=== PATIENT | male | born 1935 | race Caucasian/White ===

== ENCOUNTER 2016-12-03 17:12 | Inpatient (IN) | payer MEDICARE ==
[2016-12-03] MEDS ORDERED: IPRATROPIUM-ALBUTEROL 3 ML NEB INHALATION STA (17:47)
[2016-12-03] MEDS ORDERED: SODIUM CHLORIDE 0.9% 1,000 ML IV STA (17:47)
[2016-12-03] MEDS ORDERED: LEVOFLOXACIN 750MG-D5W PMX 750 MG in DEXTROSE/WATER 1 150ML.BAG IVPB STA (17:47)
[2016-12-03] MEDS ORDERED: SODIUM CHLORIDE 0.9% 500 ML IV STA (17:47)
[2016-12-03] MEDS ORDERED: HYDROmorphone 1 MG/ML 1 ML SYRINGE IVP STA (17:54)
[2016-12-03 18:01] LABS: Basophils % (A) 1 %; CH 27.2; CHCM 31.7; Eosinophils # (A) 0.3 k/uL (0-0.7); Eosinophils % (A) 5 %; HCT 36.5 % (39.0-53.0); HDW 2.82; HGB 11.9 gm/dL (13.0-17.5); Hypochromasia Slight; Luc # (Auto) 0.24; Luc % (Auto) 4; Lymphocytes # (A) 0.9 k/uL (1.0-4.8); Lymphocytes % (A) 15 %; MCHC 32.5 g/dL (31.0-37.0); MCV 86.3 fL (80.0-100.0); Mean Platelet Volume 7.1; Monocytes # (A) 0.5 k/uL (0-1.0); Monocytes % (A) 8 %; Neutrophils % (A) 68 %; RBC 4.23 m/uL (4.30-5.90); RDW 15.1 % (11.5-15.5); WBC (Perox) 6.01
[2016-12-03 18:12] LABS: INR 1.5 (<1.1); Partial Thromboplastin Time 27.4 sec (22.0-30.0)
[2016-12-03 18:13] LABS: ALT 31 U/L (21-72); AST 20 U/L (17-59); Alkaline Phosphatase 105 U/L (38-126); Anion Gap 13 mmol/L; Blood Urea Nitrogen 15 mg/dL (9-20); Calcium 8.9 mg/dL (8.4-10.2); Carbon Dioxide 32 mmol/L (22-30); Chloride 98 mmol/L (98-107); Glucose 63 mg/dL (74-99); Magnesium 1.8 mg/dL (1.6-2.3); Non-African American GFR(MDRD) >60 (>60 ml/min/1.73 sqM); Potassium 4.2 mmol/L (3.5-5.1); Sodium 143 mmol/L (137-145); Total Bilirubin 0.5 mg/dL (0.2-1.3); Total Protein 6.7 g/dL (6.3-8.2)
[2016-12-03 18:32] LABS: Creatine Kinase MB 0.8 ng/mL (0.0-2.4); Troponin I 0.012 ng/mL (0.000-0.034)
--- NOTE | 2016-12-03 18:37 | CT ---
EXAMINATION TYPE: CT brain oksana rollins DATE OF EXAM: 12/03/2016 6:15 PM COMPARISON: NONE HISTORY: Patient poor historian. Patient fell today. CT DLP: 1417.7 mGycm Automated exposure control for dose reduction was used. TECHNIQUE: CT scan of the head and cervical spine are performed without contrast. FINDINGS: There is cerebral atrophy. There is moderate patchy hypodensity in the periventricular wh ite matter. Calvarium is intact. There is no mass effect nor midline shift. There is no sign of intra cranial hemorrhage. The cervical vertebra have normal alignment. There is moderate hypertrophic anterior bridging osteoph yte formation throughout the cervical spine. Posterior elements are intact. There is multilevel hyper trophic facet arthropathy. Skull base is intact. I see no fracture. There is calcification of the pos terior longitudinal ligament at C4-5. IMPRESSION: Cerebral atrophy and chronic small vessel ischemia. No acute intracranial abnormality. Moderate multilevel spondylosis. No fracture.
--- NOTE | 2016-12-03 19:24 | XR ---
EXAMINATION TYPE: XR chest 2V DATE OF EXAM: 12/03/2016 7:01 PM COMPARISON: NONE HISTORY: Syncope TECHNIQUE: Frontal and lateral views of the chest are obtained. FINDINGS: Heart is probably enlarged. There is no heart failure. Lungs are clear of consolidation. T here is some coarsening of interstitial markings. There are chest leads. Bony thorax is intact. IMPRESSION: Cardiomegaly. Pulmonary fibrotic changes. Mild pneumonia in the left lower lobe cannot b e entirely excluded. No heart failure seen.
--- NOTE | 2016-12-03 20:33 | ED ---
General Adult HPI - General Chief complaint: Syncope Stated complaint: Fall Time Seen by Provider: 12/03/16 17:29 Source: EMS Mode of arrival: EMS Limitations: no limitations - History of Present Illness Initial comments: This 81-year-old white male presents with a cough with whitish production and shortness of breath. He states that shortly prior to arrival he felt presyncopal and very dizzy. His legs felt weak and gave out. He fell to the ground in the bathroom and hit his head. He denies any current headache or neck pain. He denies any history of COPD asthma or emphysema. He denies any known pulmonary problems. He states that he has had a cough and shortness of breath for 2 days. He has tried some cough syrup without relief. He denies any chest pain. He does have some chronic low back pain and states that his back is bothering him currently would like pain medication for this. He denies any other complaints or modifying factors. - Related Data Home Medications Medication Instructions Recorded Confirmed ALPRAZolam [Xanax] 0.125 mg PO BID 07/04/16 12/03/16 Aspirin EC [Ecotrin Low Dose] 81 mg PO HS 07/04/16 12/03/16 Citalopram Hydrobromide [CeleXA] 20 mg PO HS 07/04/16 12/03/16 Gabapentin [Neurontin] 100 mg PO TID PRN 07/04/16 12/03/16 Ibuprofen [Motrin] 600 mg PO BID 07/04/16 12/03/16 Isosorbide Mononitrate ER [Imdur] 15 mg PO DAILY 07/04/16 12/03/16 Potassium Chloride ER [K-Dur 10] 10 meq PO DAILY 07/04/16 12/03/16 Simvastatin [Zocor] 20 mg PO HS 07/04/16 12/03/16 Tamsulosin HCl [Flomax] 0.4 mg PO DAILY 07/04/16 12/03/16 glipiZIDE [Glucotrol] 10 mg PO BID 07/04/16 12/03/16 Furosemide [Lasix] 20 mg PO BID 12/03/16 12/03/16 Allergies Allergy/AdvReac Type Severity Reaction Status Date / Time No Known Allergies Allergy Verified 12/03/16 18:46 Review of Systems ROS Statement: Those systems with pertinent positive or pertinent negative responses have been documented in the HPI. ROS Other: All systems not noted in ROS Statement are negative. Past Medical History Past Medical History: Diabetes Mellitus, Hyperlipidemia, Hypertension History of Any Multi-Drug Resistant Organisms: None Reported Past Surgical History: Back Surgery, Cholecystectomy, Heart Catheterization With Stent, Hernia Repair, Prostate Surgery Past Psychological History: No Psychological Hx Reported Smoking Status: Former smoker Past Alcohol Use History: None Reported Past Drug Use History: None Reported General Exam - General Exam Comments Initial Comments: GENERAL: The patient is well nourished and well hydrated. VITAL SIGNS: Heart rate, blood pressure, respiratory rate reviewed as recorded in nurse's notes. EYES: Pupils are round and reactive. Extraocular movements are intact. No conjunctival / lid redness or swelling. ENT: No external evidence of injury, swelling, or ecchymosis. Airway is patent. Throat is clear. NECK: Nontender. No swelling or evidence of injury. No subcutaneous emphysema. Trachea is midline. No thyroid mass. HEART: Regular rate and rhythm. Good peripheral pulses. LUNGS/CHEST: Breath sounds clear and equal bilaterally. No rales, rhonchi, or wheezes. No ecchymosis, subcutaneous emphysema, or tenderness. ABDOMEN: Abdomen soft without tenderness. No palpable masses or organomegaly. No peritoneal signs. No abdominal wall swelling or ecchymosis. EXTREMITIES: No extremity tenderness. Normal muscle tone and function. There is mild tenderness present to the paralumbar musculature. NEUROLOGIC: Sensation is grossly intact. Cranial nerve exam reveals face is symmetrical, tongue is midline, speech is clear. SKIN: No abrasions or ecchymosis is noted. No induration or masses noted. PSYCHIATRIC: Alert and oriented. Appropriate behavior and judgment. Limitations: no limitations Course Vital Signs 12/03/16 12/03/16 17:15 20:09 Temperature 100.6 F H 97.4 F L Pulse Rate 90 82 Respiratory 18 18 Rate Blood Pressure 152/76 149/76 O2 Sat by Pulse 89 L 95 Oximetry Medical Decision Making - Medical Decision Making The patient was seen and examined. All diagnostics were reviewed. The EKG shows atrial fibrillation at a rate of 88. There is a nonspecific intraventricular block. The QRS duration is 140 and the QTc interval is 450. There is nonspecific ST-T wave changes noted. The patient had a chest x-ray done which shows a left lower lobe pneumonia as well as cardiomegaly and fibrotic changes. Laboratories is reviewed. The patient is given IV fluids as well as has DuoNeb breathing treatment and IV Levaquin. He is feeling improved on recheck. The computed tomography scan of the brain did not show any acute process. The CT of the cervical spine showed a degree of arthritis but no acute process. It is felt as though he does have pneumonia is quite weak and unable to ambulate. It is felt as though he would require admission. Case is discussed with Dr. Harmon and he is agreeable to admission. - Lab Data Result diagrams: 12/03/16 17:11 12/03/16 17:11 Lab Results 12/03/16 12/03/16 12/03/16 Range/Units 17:11 17:11 17:11 WBC 6.0 (3.8-10.6) k/uL RBC 4.23 L (4.30-5.90) m/uL Hgb 11.9 L (13.0-17.5) gm/dL Hct 36.5 L (39.0-53.0) % MCV 86.3 (80.0-100.0) fL MCH 28.0 (25.0-35.0) pg MCHC 32.5 (31.0-37.0) g/dL RDW 15.1 (11.5-15.5) % Plt Count 148 L (150-450) k/uL Neutrophils % 68 % Lymphocytes % 15 % Monocytes % 8 % Eosinophils % 5 % Basophils % 1 % Neutrophils # 4.0 (1.3-7.7) k/uL Lymphocytes # 0.9 L (1.0-4.8) k/uL Monocytes # 0.5 (0-1.0) k/uL Eosinophils # 0.3 (0-0.7) k/uL Basophils # 0.0 (0-0.2) k/uL Hypochromasia Slight PT (9.0-12.0) sec INR (<1.1) APTT (22.0-30.0) sec Sodium 143 (137-145) mmol/L Potassium 4.2 (3.5-5.1) mmol/L Chloride 98 (98-107) mmol/L Carbon Dioxide 32 H (22-30) mmol/L Anion Gap 13 mmol/L BUN 15 (9-20) mg/dL Creatinine 1.00 (0.66-1.25) mg/dL Est GFR (MDRD) Af Amer >60 (>60 ml/min/1.73 sqM) Est GFR (MDRD) Non-Af >60 (>60 ml/min/1.73 sqM) Glucose 63 L (74-99) mg/dL Plasma Lactic Acid Lior (0.7-2.0) mmol/L Calcium 8.9 (8.4-10.2) mg/dL Magnesium 1.8 (1.6-2.3) mg/dL Total Bilirubin 0.5 (0.2-1.3) mg/dL AST 20 (17-59) U/L ALT 31 (21-72) U/L Alkaline Phosphatase 105 (38-126) U/L Total Creatine Kinase 107 (55-170) U/L CK-MB (CK-2) 0.8 (0.0-2.4) ng/mL CK-MB (CK-2) Rel Index 0.7 Troponin I 0.012 (0.000-0.034) ng/mL NT-Pro-B Natriuret Pep pg/mL Total Protein 6.7 (6.3-8.2) g/dL Albumin 3.6 (3.5-5.0) g/dL 12/03/16 12/03/16 12/03/16 Range/Units 17:11 17:11 17:11 WBC (3.8-10.6) k/uL RBC (4.30-5.90) m/uL Hgb (13.0-17.5) gm/dL Hct (39.0-53.0) % MCV (80.0-100.0) fL MCH (25.0-35.0) pg MCHC (31.0-37.0) g/dL RDW (11.5-15.5) % Plt Count (150-450) k/uL Neutrophils % % Lymphocytes % % Monocytes % % Eosinophils % % Basophils % % Neutrophils # (1.3-7.7) k/uL Lymphocytes # (1.0-4.8) k/uL Monocytes # (0-1.0) k/uL Eosinophils # (0-0.7) k/uL Basophils # (0-0.2) k/uL Hypochromasia PT 15.0 H (9.0-12.0) sec INR 1.5 (<1.1) APTT 27.4 (22.0-30.0) sec Sodium (137-145) mmol/L Potassium (3.5-5.1) mmol/L Chloride (98-107) mmol/L Carbon Dioxide (22-30) mmol/L Anion Gap mmol/L BUN (9-20) mg/dL Creatinine (0.66-1.25) mg/dL Est GFR (MDRD) Af Amer (>60 ml/min/1.73 sqM) Est GFR (MDRD) Non-Af (>60 ml/min/1.73 sqM) Glucose (74-99) mg/dL Plasma Lactic Acid Lior 1.1 (0.7-2.0) mmol/L Calcium (8.4-10.2) mg/dL Magnesium (1.6-2.3) mg/dL Total Bilirubin (0.2-1.3) mg/dL AST (17-59) U/L ALT (21-72) U/L Alkaline Phosphatase (38-126) U/L Total Creatine Kinase (55-170) U/L CK-MB (CK-2) (0.0-2.4) ng/mL CK-MB (CK-2) Rel Index Troponin I (0.000-0.034) ng/mL NT-Pro-B Natriuret Pep 1500 pg/mL Total Protein (6.3-8.2) g/dL Albumin (3.5-5.0) g/dL Disposition Clinical Impression: Community acquired pneumonia, Weakness, Dyspnea, Head injury, Chronic low back pain, Fall, Fever, Hypoxia Disposition: ADMITTED IP TO THIS [facility] Condition: Fair Time of Disposition: 20:37 Decision Date: 12/03/16 Decision Time: 20:37
[2016-12-03] MEDS ORDERED: PNEUMONIA PROTOCOL UTILIZED 1 EACH MISC PO PRN (20:38)
[2016-12-03] MEDS ORDERED: GABAPENTIN 100 MG CAP PO PRN (20:48)
[2016-12-04] MEDS: ASPIRIN 81 MG CHEW PO SCH ×2 (00:13→21:24)
[2016-12-04] MEDS: ALPRAZolam 0.25 MG TAB PO SCH ×3 (00:13→21:23)
[2016-12-04] MEDS: HYDROcodone/APAP 5-325MG 1 EACH TAB PO PRN ×2 (00:13→12:05)
[2016-12-04 00:25] LABS: Appearance,Urine Clear (Clear); Bacteria,Urine Rare /hpf; Bilirubin,Urine Negative (Negative); Glucose,Urine (UA) Negative (Negative); Ketones,Urine Negative (Negative); Leukocyte Esterase,Urine Negative (Negative); Mucus,Urine Rare /hpf; Nitrite,Urine Negative (Negative); Particle Count 1065; Protein,Urine Trace (Negative); RBC,Urine 4 /hpf (0-5); Specific Gravity,Urine 1.018 (1.001-1.035); UA Billing (MACRO vs. MICRO) MICRO; Urobilinogen,Urine <2.0 mg/dL (<2.0); WBC,Urine <1 /hpf (0-5)
[2016-12-04 00:32] VITALS: BMI 29.0
[2016-12-04] MEDS: ATORVASTATIN 10 MG TAB PO SCH ×2 (00:41→21:24)
[2016-12-04] MEDS: FUROSEMIDE 20 MG TAB PO SCH ×3 (00:41→21:24)
[2016-12-04] MEDS: OSELTAMIVIR 75 MG CAP PO SCH ×3 (00:41→21:25)
[2016-12-04] MEDS: IBUPROFEN 600 MG TAB PO SCH ×3 (00:41→21:28)
[2016-12-04] MEDS: CITALOPRAM HYDROBROMIDE 20 MG TAB PO SCH ×2 (00:42→21:24)
[2016-12-04] MEDS: glipiZIDE 10 MG TAB PO SCH ×3 (00:42→17:31)
[2016-12-04 00:52] LABS: Glucose,Whole Blood 131 mg/dL (75-99)
[2016-12-04 06:42] LABS: Glucose,Whole Blood 123 mg/dL (75-99)
[2016-12-04] MEDS: ENOXAPARIN 40 MG/0.4 ML SYRINGE SQ SCH (08:07)
[2016-12-04] MEDS: POTASSIUM CHLORIDE ER 10 MEQ TAB.ER.PRT PO SCH (08:08)
[2016-12-04] MEDS: ISOSORBIDE MONONITRATE ER 15 MG TAB PO SCH (08:08)
--- NOTE | 2016-12-04 08:30 | P.HPIM ---
History of Present Illness Chief complaint: Fall and weakness associated with cough and dyspnea on exertion. History of present illness: Patient states he has been coughing and feeling weak over the past 5-7 days. Yesterday apparently in the bathroom he fell backwards. He denies any prolonged loss of consciousness. He denied any chest pain but states for the past several days he's had a cough with shortness of breath with exertion around the house. Past medical history: Patient does have a history of coronary artery disease with previous stenting and he is followed by cardiology locally but missed his last appointment due to the weather. Positive for hypertension Positive type 2 diabetes Hyperlipidemia Chronic lumbar osteoarthritis and pain. Underlying anxiety and depression History of previous prostate resection for cancer without recurrence. Other surgical history includes cataract extraction of the left eye and cholecystectomy along with hernia repair Medications: ALLERGIES to latex without rash and hives Home medications Glipizide 10 mg twice a day Flomax 0.4 mg daily Simvastatin 20 mg at at bedtime Potassium chloride 10 mEq daily Isorbid mononitrate 15 mg daily Motrin 600 mg twice a day Gabapentin 100 mg 3 times a day as needed Citalopram 20 mg at at bedtime Aspirin 81 mg at at bedtime Xanax 0.125 twice a day Lasix 20 mg twice a day Review of systems: Denies any unusual headache. No visual disturbances. No nausea or vomiting. No chest pain. Positive cough as discussed above. No abdominal pain. No new urinary or bowel symptoms. No blood in stool or urine. No unusual edema. Family history: Positive for coronary artery disease. Social history: Patient is a former smoker. Negative for any excessive alcohol use. Patient does live with his locally. Physical examination: Patient does seem somewhat fatigued but overall alert and oriented sitting up in bed. Vital signs did show a temperature 100.2 but presently down to 98.5. Pulse is 74 and respirations 24. Blood pressure 133/67 and he is 94% saturated on 2 L. Head and neck exam unremarkable. No carotid bruits or adenopathy or thyromegaly detected. Extraocular movements intact. Lungs clear. Heart tones for also regular at the time of my evaluation without murmurs or rubs appreciated. Abdomen is obese but soft and nontender. Rectal and genital exam negative. No unusual edema. Neurologically he is alert. Cranial nerves intact. No focal weakness. Laboratory: White count of 6 with a hemoglobin 11.9 and a platelet count of 148. INR 1.5 Sodium is 143 with potassium 4.2. BUN of 15 with creatinine of 1.0 given him a GFR greater than 60. Blood sugar was 63. Liver function tests were good. Venous lactic acid was 1.1. Pro BNP was 1500. Troponins 0.012. Albumin 3.6. Urinalysis: Leukocyte Estrace was negative. Only 1 white cell. Positive influenza B detected. Initial EKG is read out as atrial fibrillation. With a heart rate of 88. No definite acute ischemic changes. Nonspecific intraventricular block present. Computed tomography scan of the head and neck revealed cerebral atrophy and small vessel disease but no acute intracranial abnormality. Chest x-ray showed cardiomegaly and left lower lobe infiltrate consistent with pneumonia. Impressions: Left lower lobe pneumonia post-influenza respiratory infection. With subsequent weakness and fall at home with closed head injury. Other comorbidities as listed in the past medical history. The possibility of new onset atrial fibrillation based on first EKG although presently appears to be back in sinus rhythm. Also presentation with relative hypoglycemia which may be an additional factor to his fall at home. Plans: We'll continue with antibiotics along with Tamiflu for now. We'll consult cardiology. Continue most of patient's home medications. Physical and occupational therapies. Hopefully with clinical improvement can return to home with home care. Past Medical History Past Medical History: Cancer, Diabetes Mellitus, Hyperlipidemia, Hypertension, Myocardial Infarction (CT), Osteoarthritis (OA), Pulmonary Embolus (PE) Additional Past Medical History / Comment(s): prostate cancer 1996(sx only), arthritis, per 2008 past medical hx- mi in 1999, pe after back sx 1997, emphysema, gout,constipation, aaa " stated thinks it's 3.5 cm", pt is rt side dominant.ho-chunk,dentures, Last Myocardial Infarction Date:: 1999 History of Any Multi-Drug Resistant Organisms: None Reported Past Surgical History: Back Surgery, Cholecystectomy, Heart Catheterization With Stent, Hernia Repair, Prostate Surgery Additional Past Surgical History / Comment(s): jesenia cataract , colonoscopy polys remove were benign, lt hand sx Past Anesthesia/Blood Transfusion Reactions: Previous Problems w/ Anesthesia Additional Past Anesthesia/Blood Transfusion Reaction / Comment(s): hard time waking after a colonoscopy Date of Last Stent Placement:: unk Past Psychological History: No Psychological Hx Reported Additional Psychological History / Comment(s): pt lives at home with his , 2 story home but pt stays on main level.has 2 steps into home. pt uses a rolling walker w/seat or cane(has both single and a quad cane), has a shower chair. currently no home care, no previous service. 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 Smoking Status: Former smoker Past Alcohol Use History: None Reported Additional Past Alcohol Use History / Comment(s): started smokning 1952, quit 1982 smoked 1 to 1.5 ppd Past Drug Use History: None Reported - Past Family History Father Family Medical History: CVA/TIA Mother Family Medical History: CVA/TIA, Hypertension Additional Family Medical History / Comment(s): pacemaker Medications and Allergies Home Medications Medication Instructions Recorded Confirmed Type ALPRAZolam [Xanax] 0.125 mg PO BID 07/04/16 12/03/16 History Aspirin EC [Ecotrin Low Dose] 81 mg PO HS 07/04/16 12/03/16 History Citalopram Hydrobromide [CeleXA] 20 mg PO HS 07/04/16 12/03/16 History Gabapentin [Neurontin] 100 mg PO TID PRN 07/04/16 12/03/16 History Ibuprofen [Motrin] 600 mg PO BID 07/04/16 12/03/16 History Isosorbide Mononitrate ER [Imdur] 15 mg PO DAILY 07/04/16 12/03/16 History Potassium Chloride ER [K-Dur 10] 10 meq PO DAILY 07/04/16 12/03/16 History Simvastatin [Zocor] 20 mg PO HS 07/04/16 12/03/16 History Tamsulosin HCl [Flomax] 0.4 mg PO DAILY 07/04/16 12/03/16 History glipiZIDE [Glucotrol] 10 mg PO BID 07/04/16 12/03/16 History Furosemide [Lasix] 20 mg PO BID 12/03/16 12/03/16 History Allergies Allergy/AdvReac Type Severity Reaction Status Date / Time latex Allergy Unknown Rash/Hives Verified 12/04/16 01:47 Physical Exam Vitals: Vital Signs Temp Pulse Pulse Resp BP BP Pulse Ox 12/04/16 07:00 98.5 F 74 24 133/67 94 L 12/04/16 04:44 97.8 F 12/04/16 01:04 16 12/04/16 00:40 100.2 F H 98 16 146/73 92 L 12/04/16 00:04 93 20 155/82 99 Intake and Output 12/03/16 12/04/16 12/04/16 22:59 06:59 14:59 Intake Total 200 Balance 200 Intake: Oral 200 Other: Voiding Method Urinal Weight 99.79 kg Results CBC & Chem 7: 12/03/16 17:11 12/03/16 17:11 Labs: Abnormal Lab Results - Last 24 Hours (Table) 12/03/16 12/04/16 12/04/16 Range/Units 21:36 00:05 00:49 POC Glucose (mg/dL) 131 H (75-99) mg/dL Urine Protein Trace H (Negative) Urine Blood Small H (Negative) Urine WBC Clumps Rare H (None) /hpf Urine Bacteria Rare H (None) /hpf Hyaline Casts 8 H (0-2) /lpf Urine Mucus Rare H (None) /hpf Influenza Type B (PCR) Detected H (Not Detectd) 12/04/16 Range/Units 06:40 POC Glucose (mg/dL) 123 H (75-99) mg/dL Urine Protein (Negative) Urine Blood (Negative) Urine WBC Clumps (None) /hpf Urine Bacteria (None) /hpf Hyaline Casts (0-2) /lpf Urine Mucus (None) /hpf Influenza Type B (PCR) (Not Detectd) Thrombosis Risk Factor Assmnt - Choose All That Apply Each Risk Factor Represents 3 Points: Age 75 years or older, History of DVT/PE Other congenital or acquired thrombophilia - If yes, enter type in comment: No Thrombosis Risk Factor Assessment Total Risk Factor Score: 6 Thrombosis Risk Factor Assessment Level: High Risk
[2016-12-04] MEDS ORDERED: TAMSULOSIN 0.4 MG CAP.ER.24H PO SCH (09:00)
[2016-12-04] MEDS: IPRATROPIUM-ALBUTEROL 3 ML NEB INHALATION PRN (09:05)
[2016-12-04 12:17] LABS: Glucose,Whole Blood 128 mg/dL (75-99)
[2016-12-04 17:10] LABS: Glucose,Whole Blood 86 mg/dL (75-99)
[2016-12-04] MEDS: LEVOFLOXACIN 750MG-D5W PMX 750 MG in DEXTROSE/WATER 1 150ML.BAG IVPB SCH (17:31)
--- NOTE | 2016-12-04 17:38 | CONS ---
DATE OF CONSULTATION: Mr. Fonseca is an 81-year-old male with a known history of coronary artery disease who presented after a fall. He has been coughing, feeling weak for the last few days, and had felt some palpitation in the chest, went to the bathroom and he fell backward. He did not have any loss of consciousness, did not have any chest pain. After presentation he was diagnosed with influenza. His initial EKG raised a question of atrial fibrillation, although it appears to be sinus mechanism with first-degree AV block and PACs. He has some peripheral edema. No clear PND. No orthopnea. No syncope, but he had dizziness. His cardiac history is remarkable for the fact that he underwent stenting of his proximal right coronary artery in 1997. He had moderately impaired left ventricular systolic function with mild to moderate aortic regurgitation and moderate mitral regurgitation in the past. He has history of atrial arrhythmia but no history of atrial fibrillation. His coronary risk factors are remarkable for hypertension, hyperlipidemia and diabetes mellitus. He is a nonsmoker. His medications at home included: 1. Glipizide 10 mg twice a day. 2. Flomax 0.4 mg daily. 3. Simvastatin 20 mg daily. 4. Potassium. 5. Isosorbide mononitrate 15 mg daily. 6. Motrin. 7. Gabapentin. 8. Citalopram. 9. Aspirin 81 mg daily. 10. Xanax 0.125 mg twice a day. 11. Lasix 20 mg daily. REVIEW OF SYSTEMS: RESPIRATORY SYSTEM: He has the cough, some fever, the dyspnea; no wheezing. GI SYSTEM: No recent GI bleeding. No peptic ulcer disease. SYSTEM: No dysuria or hematuria. NERVOUS SYSTEM: No history of stroke. PHYSICAL EXAMINATION: He is an 81-year-old male, alert, oriented, in no apparent distress. Blood pressure 133/60 with a heart rate of 70. HEAD: Normocephalic. EYES: Sclerae anicteric. NECK: Good carotid upstroke. No bruit. LUNGS: A few crackles, more noted on the left base. HEART: Regular rate, rhythm. S1, S2. No S3, with systolic murmur heard at the base with early diastolic murmur. No rub. ABDOMEN: Soft, nontender. Positive bowel sounds. No organomegaly. EXTREMITIES: No edema. Lab data revealed influenza B positive. Hemoglobin 11.9. BUN and creatinine of 15 and 1.0. Troponin less than 0.012. NT-proBNP of 1500. His EKG shows what appears to be sinus mechanism with first-degree AV block, evidence of intraventricular conduction delay with an inferior wall myocardial infarction and occasional PACs. The CT scan of the head shows no acute bleed. IMPRESSION: 1. Influenza B infection with an infiltrate on the x-ray in the left lower lobe. 2. History of coronary artery disease with no recurrent angina pectoris. 3. History of ischemic cardiomyopathy with no evidence of congestive heart failure. 4. Fall but no evidence of syncope. 5. Atrial arrhythmia but no evidence to suggest atrial fibrillation at this point. 6. Hypertension. 7. Hyperlipidemia. RECOMMENDATIONS: From the cardiac standpoint, I will continue present therapy. I will repeat his echocardiogram. Depending on his progress, further recommendations will be made. Thank you for this consult. Will follow with you.
--- NOTE | 2016-12-04 18:53 | XR ---
EXAMINATION TYPE: XR chest 2V DATE OF EXAM: 12/04/2016 6:42 PM COMPARISON: 12/03/2016 HISTORY: Pneumonia TECHNIQUE: Frontal and lateral views of the chest are obtained. FINDINGS: There is no heart failure. There is patchy airspace pneumonic infiltrate in the mid and lo wer lung field on the left side. The right lung is clear. There are no definite hilar masses. There a re chest leads. Bony thorax appears intact. IMPRESSION: Left lower lobe pneumonia appears worse than exam yesterday. No gross heart failure.
[2016-12-04 20:54] LABS: Glucose,Whole Blood 81 mg/dL (75-99)
[2016-12-04 23:29] LABS: Glucose,Whole Blood 112 mg/dL (75-99)
[2016-12-05 07:40] LABS: Glucose,Whole Blood 77 mg/dL (75-99)
[2016-12-05] MEDS: IPRATROPIUM-ALBUTEROL 3 ML NEB INHALATION PRN (07:50)
--- NOTE | 2016-12-05 08:12 | P.PN ---
Progress Note - Text The patient is a 81-year-old gentleman who presented with weakness and coughing prior to admission along with a fall at home. He states this morning he still feels tired and worn out but the coughing has somewhat improved and he does not feel short of breath at rest. He denies any chest pain. No nausea or vomiting at this time. Her temperature this morning is 99. Pulse is 104. He did just finish a respiratory treatment. Respirations are 20. Nonlabored. Up pressure 128/67 and his O2 saturation is 91 on 2 L. Lungs generally clear with good air entry with some scattered rhonchi on the left side. Heart tones this morning are regular and slightly tacky. Abdomen nontender. Positive varicosities present on the lower extremities but no unusual edema noted. Neurologically he is alert. No cranial nerve deficits. No focal weakness noted. Laboratory values are mostly pending although blood sugar is 77 this morning. Yesterday's chest x-ray did show some progression of the left lower lobe pneumonia. Impressions and plans: Overall this 81-year-old gentleman with left lower lobe pneumonia post- influenza B infection is slowly recovering. There was initial question of possible atrial fibrillation but it appears from cardiology review and that that is not the case. Consultation noted. We will continue his present medications along with antibiotics along with respiratory treatments and antiviral medication. Patient has had some urinary retention and we'll increase his Flomax to 2 a day. Continue with physical and occupational therapy. Expectation is for patient to return to home when doing better.
[2016-12-05] MEDS: ENOXAPARIN 40 MG/0.4 ML SYRINGE SQ SCH (09:22)
[2016-12-05] MEDS: ISOSORBIDE MONONITRATE ER 15 MG TAB PO SCH (09:22)
[2016-12-05] MEDS: glipiZIDE 10 MG TAB PO SCH ×2 (09:22→17:41)
[2016-12-05] MEDS: TAMSULOSIN 0.4 MG CAP.ER.24H PO SCH (09:22)
[2016-12-05] MEDS: IBUPROFEN 600 MG TAB PO SCH ×2 (09:22→20:18)
[2016-12-05] MEDS: OSELTAMIVIR 75 MG CAP PO SCH ×2 (09:23→20:16)
[2016-12-05] MEDS: POTASSIUM CHLORIDE ER 10 MEQ TAB.ER.PRT PO SCH (09:23)
[2016-12-05] MEDS: ALPRAZolam 0.25 MG TAB PO SCH ×2 (09:23→20:15)
[2016-12-05] MEDS: FUROSEMIDE 20 MG TAB PO SCH ×2 (09:23→20:16)
[2016-12-05 09:40] LABS: Basophils % (A) 1 %; CH 27.6; CHCM 32.1; Eosinophils % (A) 0 %; HCT 36.1 % (39.0-53.0); HDW 2.89; HGB 11.6 gm/dL (13.0-17.5); Luc # (Auto) 0.28; Luc % (Auto) 3; Lymphocytes # (A) 0.6 k/uL (1.0-4.8); Lymphocytes % (A) 7 %; MCH 27.9 pg (25.0-35.0); MCHC 32.2 g/dL (31.0-37.0); MCV 86.4 fL (80.0-100.0); Mean Platelet Volume 7.6; Monocytes # (A) 0.5 k/uL (0-1.0); Monocytes % (A) 5 %; Neutrophils # (A) 7.2 k/uL (1.3-7.7); Neutrophils % (A) 84 %; RBC 4.18 m/uL (4.30-5.90); RDW 15.3 % (11.5-15.5); WBC 8.6 k/uL (3.8-10.6); WBC (Perox) 9.48
[2016-12-05 09:51] LABS: Anion Gap 13 mmol/L; Blood Urea Nitrogen 24 mg/dL (9-20); Calcium 8.7 mg/dL (8.4-10.2); Carbon Dioxide 26 mmol/L (22-30); Chloride 102 mmol/L (98-107); Glucose 80 mg/dL (74-99); Non-African American GFR(MDRD) >60 (>60 ml/min/1.73 sqM); Potassium 3.7 mmol/L (3.5-5.1); Sodium 141 mmol/L (137-145)
--- NOTE | 2016-12-05 11:34 | ECHOF ---
Referral Reason:cad MEASUREMENTS -------- HEIGHT: 180.3 cm WEIGHT: 99.3 kg BP: IVSd: 1.1 cm (0.6 - 1.1) LVIDd: 4.5 cm (3.9 - 5.3) LVPWd: 1.1 cm (0.6 - 1.1) IVSs: 1.6 cm LVIDs: 4.4 cm LVPWs: 1.0 cm Ao Diam: 3.5 cm (2.0 - 3.7) AV Cusp: 1.8 cm (1.5 - 2.6) LA Diam: 2.9 cm (2.7 - 3.8) MV EXCURSION: 18.547 mm (> 18.000) MV EF SLOPE: 51 mm/s (70 - 150) EPSS: 3.5 cm MV E Dimitry: 0.76 m/s MV DecT: 135 ms MV A Dimitry: 0.58 m/s MV E/A Ratio: 1.30 AR PHT: 2464 ms RAP: 5.00 mmHg RVSP: 10.49 mmHg FINDINGS -------- Sinus rhythm. This was a technically difficult study with suboptimal views. The left ventricular size is normal. Left ventricular wall thickness is normal. Overall left ventricular systolic function is moderately impaired with, an EF between 35 - 40 %. Inferiorlateral Hypokinesis Mid Septal Hypokinesis. The right ventricle is normal in size and function. The left atrium is normal in size. The right atrium is normal in size. 1.5mg of Definity was utilized for enhancement of images There is mild aortic valve sclerosis. There is mild aortic regurgitation. Mild mitral annular calcification present. Mild mitral regurgitation is present. Mild tricuspid regurgitation present. The right ventricular systolic pressure, as measured by Doppler, is 10.49mmHg. The pulmonic valve was not well visualized. The aortic root size is normal. There is no pericardial effusion. CONCLUSIONS -------- 1. Sinus rhythm. 2. There is mild aortic regurgitation. 3. Mild mitral annular calcification present. 4. Mild mitral regurgitation is present. 5. Mild tricuspid regurgitation present. 6. The right ventricular systolic pressure, as measured by Doppler, is 10.49mmHg. 7. The pulmonic valve was not well visualized. 8. The aortic root size is normal. 9. There is no pericardial effusion. 10. This was a technically difficult study with suboptimal views. 11. Left ventricular wall thickness is normal. 12. Overall left ventricular systolic function is moderately impaired with, an EF between 35 - 40 %. 13. Inferiorlateral Hypokinesis 14. Mid Septal Hypokinesis. 15. The left atrium is normal in size. 16. 1.5mg of Definity was utilized for enhancement of images 17. There is mild aortic valve sclerosis. VIRTUAL CUSTOMER ASSISTANT: Betsy Portillo RDCS
--- NOTE | 2016-12-05 11:37 | PN ---
Mr. Fonseca is an 81-year-old male with a history of coronary artery disease, ischemic cardiomyopathy, who presented with a fall, weakness, cough and was diagnosed with influenza B and left lower lobe pneumonia. He is feeling better today although he feels tired. He has no chest pain. No palpitation. He continues to have a cough. There is no evidence of significant arrhythmia on the monitor. He continues to be on aspirin, Lipitor 10 mg daily, Lasix 20 mg twice a day, isosorbide mononitrate 15 mg daily, tamsulosin and glipizide in addition to his antibiotics. PHYSICAL EXAMINATION: Blood pressure 128/60 with a heart in the 70s. He had temperature of 99.8 earlier. LUNGS: With a few crackles left base. HEART: Regular rate rhythm. S1, S2, no S3, with systolic murmur. ABDOMEN: Soft, nontender. EXTREMITIES: No edema. EKG reveals sinus mechanism with occasional PACs. Lab data revealed hemoglobin 11.6. BUN and creatinine 24 and 0.91. IMPRESSION: 1. Influenza B with pneumonia. 2. History of coronary artery disease. 3. Ischemic cardiomyopathy. 4. Atrial arrhythmia, but no evidence of atrial fibrillation. RECOMMENDATIONS: From the cardiac standpoint, I will review the results of his echocardiogram. Continue the rest of his medical regimen. If there is no significant change from his echocardiogram, then no further cardiac work-up will be needed.
[2016-12-05 12:03] LABS: Glucose,Whole Blood 77 mg/dL (75-99)
[2016-12-05 17:17] LABS: Glucose,Whole Blood 53 mg/dL (75-99)
[2016-12-05 17:29] LABS: Glucose,Whole Blood 71 mg/dL (75-99)
[2016-12-05] MEDS: LEVOFLOXACIN 750MG-D5W PMX 750 MG in DEXTROSE/WATER 1 150ML.BAG IVPB SCH (17:58)
[2016-12-05] MEDS: ASPIRIN 81 MG CHEW PO SCH (20:16)
[2016-12-05] MEDS: ATORVASTATIN 10 MG TAB PO SCH (20:16)
[2016-12-05] MEDS: CITALOPRAM HYDROBROMIDE 20 MG TAB PO SCH (20:16)
[2016-12-05 21:05] LABS: Glucose,Whole Blood 92 mg/dL (75-99)
[2016-12-05 22:43] LABS: Glucose,Whole Blood 56 mg/dL (75-99)
[2016-12-05 23:05] LABS: Glucose,Whole Blood 49 mg/dL (75-99)
[2016-12-05 23:30] LABS: Glucose,Whole Blood 52 mg/dL (75-99)
[2016-12-05] MEDS ORDERED: DEXTROSE 50%-WATER 50 ML SYRINGE IVP ONE (23:35)
[2016-12-05 23:52] LABS: Glucose,Whole Blood 163 mg/dL (75-99)
[2016-12-06 07:23] LABS: Glucose,Whole Blood 97 mg/dL (75-99)
--- NOTE | 2016-12-06 07:51 | P.PN ---
Progress Note - Text The patient is an 81-year-old gentleman with left lower lobe pneumonia associated with influenza B virus infection. Patient has been slowly improving on IV antibiotics but apparently had some increased confusion yesterday. This morning he is alert and pleasant he knows who I am but is confused to place and time. States he feels somewhat better than yesterday but still bringing up phlegm. Vital signs reveal temperature 97.2 with a pulse of 89 respirations 18. Blood pressure 152/72. Repeat oxygen saturation is pending, it has been up to 96 and down to 82 through the night. Lungs do reveal some harsh expiratory wheeze. Heart tones are regular. Rate control. Abdomen is soft and nontender. No edema. He does know who I am when I entered the room room but is not sure of the month or year. Thinks it is 2016. No focal neurological weakness. Blood sugar was 97 but has been as low as 49. Impressions and plans: Patient with left lower lobe pneumonia. Underlying confusion could be multifactorial. The patient is elderly in the hospital. Continue antibiotics and respiratory treatments. May be also related to relative hypoglycemic episodes. We will decrease his glipizide dosage. Prednisone has been added for his wheezing along with his respiratory treatments and continue antibiotics along with Tamiflu. Repeat chest x-ray to follow. Decrease Levaquin to 500 mg.
[2016-12-06] MEDS: glipiZIDE 10 MG TAB PO SCH (08:03)
--- NOTE | 2016-12-06 08:13 | XR ---
EXAMINATION TYPE: XR chest 1V portable DATE OF EXAM: 12/06/2016 7:59 AM COMPARISON: Prior chest x-ray November HISTORY: Pneumonia TECHNIQUE: Single frontal view of the chest is obtained. FINDINGS: The patient is rotated. The heart is enlarged. No evident pneumothorax. No sizable effusio n. Patchy increased density suspected at the lung bases. Interstitium is increased. Central vasculari ty is prominent. IMPRESSION: Cardiomegaly. Correlate to exclude congestive heart failure, pneumonia, follow-up PA and lateral chest x-ray recommended
[2016-12-06] MEDS ORDERED: DOCUSATE 100 MG CAP PO PRN (09:02)
[2016-12-06] MEDS: ENOXAPARIN 40 MG/0.4 ML SYRINGE SQ SCH (09:04)
[2016-12-06] MEDS: TAMSULOSIN 0.4 MG CAP.ER.24H PO SCH (09:04)
[2016-12-06] MEDS: POTASSIUM CHLORIDE ER 10 MEQ TAB.ER.PRT PO SCH (09:05)
[2016-12-06] MEDS: OSELTAMIVIR 75 MG CAP PO SCH ×2 (09:05→20:09)
[2016-12-06] MEDS: ISOSORBIDE MONONITRATE ER 15 MG TAB PO SCH (09:05)
[2016-12-06] MEDS: FUROSEMIDE 20 MG TAB PO SCH ×2 (09:05→20:09)
[2016-12-06] MEDS: IBUPROFEN 600 MG TAB PO SCH ×2 (09:13→20:09)
[2016-12-06] MEDS: ALPRAZolam 0.25 MG TAB PO SCH ×2 (09:13→20:08)
[2016-12-06] MEDS: LEVOFLOXACIN 500 MG TAB PO SCH (09:13)
[2016-12-06] MEDS: predniSONE 20 MG TAB PO SCH (09:14)
[2016-12-06 11:25] LABS: Glucose,Whole Blood 142 mg/dL (75-99)
--- NOTE | 2016-12-06 13:29 | CDI ---
In responding to this query, please exercise your independent professional judgment. The [facility] Coding Staff and Clinical Documentation Specialists appreciate your assistance in clarifying documentation, maintaining compliance with coding guidelines, accurately documenting patients condition and capturing severity of illness. The fact that a question is asked does not imply that any particular answer is desired or expected. Communication forms are a method of clarifying documentation and are not made part of the Legal Health Record. Thank you in advance for your clarification. Last Revision, November 2015 Katheryn Vidal [address] [place] [address] Documentation Clarification Form Date: 12/06/2016 12:59:00 PM From: Ernesto Lacy Phone: Admit Date: 12/03/2016 8:37:00 PM Patient Name: Xavi Fonseca Visit Number: [id number] Dr. Nolberto Adame: "Confusion" was documented in the progress note dated 12/06/16. "Underlying confusion could be multifactorial as patient is elderly in the hospital, may also be related to relative hypoglycemic episodes". "He is alert and pleasant, knows who I am but is confused to place and time". Patient history/risk factors: 81 yo male with a history of DM II currently being treated for LLL associated with influenza B virus infection. Clinical Indicators: Blood sugars: /49/52/163 Treatment: 1 amp D50, serial glucose checks, hypoglycemic protocol, decreased Glipizide dose In your professional opinion, please clarify the possible etiology of the confusion, if known. Encephalopathy (specify Type (metabolic/toxic) and Underlying Medical Illness ) Delirium (specify cause): Dementia (if know, specify Type and if with/without Behavioral Disturbance) Other condition (please specify) Unable to determine Please document in your progress notes and discharge summary in order to capture severity of illness and risk of mortality. Include clinical findings that support your diagnosis. FYI: Press F11 to launch patient chart. Place X here if this finding has no clinical significance, is not applicable or if you are not able to provide any additional documentation. MTDD
--- NOTE | 2016-12-06 16:24 | PN ---
Mr. Fonseca is an 81-year-old male with a history of coronary artery disease, ischemic cardiomyopathy, who presented with cough, weakness and evidence of influenza B pneumonia. He feels and looks stronger this morning. He was a little bit confused earlier. He denies any dizziness. No palpitation. He continues to cough, although overall he feels better. His appetite is stable. He continues on: 1. Aspirin 81 mg daily. 2. Lipitor 10 mg daily. 3. Celexa. 4. Lasix 20 mg twice a day. 5. Gabapentin. 6. Isosorbide mononitrate 15 mg daily. 7. Tamiflu. 8. Flomax. 9. Glipizide 5 mg twice a day. 10. Course of prednisone. PHYSICAL EXAMINATION: Blood pressure is running in the 150s with a heart rate in the 70s. LUNGS: Clear with crackles at the left base. HEART: Regular rate and rhythm. S1, S2. No S3. With systolic murmur. No diastolic murmur. No rub. ABDOMEN: Soft, nontender. EXTREMITIES: No edema. His echocardiogram that was performed showed an ejection fraction of 35% to 40% with segmental wall motion abnormality noted in the past with mild mitral and tricuspid regurgitation. IMPRESSION: 1. Pneumonia, being treated. 2. History of coronary artery disease. 3. Ischemic cardiomyopathy. 4. Hypertension. RECOMMENDATION: Will follow his blood pressure and adjust his antihypertensive regimen as needed. If his blood pressure remains elevated, then an addition of an CLYDE inhibitor can be done.
[2016-12-06 17:11] LABS: Glucose,Whole Blood 218 mg/dL (75-99)
[2016-12-06] MEDS: glipiZIDE 5 MG TAB PO SCH (17:25)
[2016-12-06] MEDS: ATORVASTATIN 10 MG TAB PO SCH (20:09)
[2016-12-06] MEDS: CITALOPRAM HYDROBROMIDE 20 MG TAB PO SCH (20:09)
[2016-12-06] MEDS: ASPIRIN 81 MG CHEW PO SCH (20:10)
[2016-12-06 21:10] LABS: Glucose,Whole Blood 164 mg/dL (75-99)
[2016-12-07 06:39] LABS: Glucose,Whole Blood 121 mg/dL (75-99)
[2016-12-07 08:53] LABS: Anion Gap 11 mmol/L; Blood Urea Nitrogen 29 mg/dL (9-20); Calcium 8.7 mg/dL (8.4-10.2); Carbon Dioxide 29 mmol/L (22-30); Chloride 104 mmol/L (98-107); Glucose 145 mg/dL (74-99); Non-African American GFR(MDRD) >60 (>60 ml/min/1.73 sqM); Potassium 3.7 mmol/L (3.5-5.1); Sodium 144 mmol/L (137-145)
[2016-12-07] MEDS: ISOSORBIDE MONONITRATE ER 15 MG TAB PO SCH (09:17)
[2016-12-07] MEDS: IBUPROFEN 600 MG TAB PO SCH ×2 (09:17→20:28)
[2016-12-07] MEDS: ENOXAPARIN 40 MG/0.4 ML SYRINGE SQ SCH (09:17)
[2016-12-07] MEDS: ALPRAZolam 0.25 MG TAB PO SCH ×2 (09:17→20:28)
[2016-12-07] MEDS: FUROSEMIDE 20 MG TAB PO SCH ×2 (09:18→20:29)
[2016-12-07] MEDS: OSELTAMIVIR 75 MG CAP PO SCH ×2 (09:18→20:29)
[2016-12-07] MEDS: POTASSIUM CHLORIDE ER 10 MEQ TAB.ER.PRT PO SCH (09:18)
[2016-12-07] MEDS: predniSONE 20 MG TAB PO SCH (09:18)
[2016-12-07] MEDS: TAMSULOSIN 0.4 MG CAP.ER.24H PO SCH (09:18)
[2016-12-07] MEDS: LEVOFLOXACIN 500 MG TAB PO SCH (09:18)
[2016-12-07] MEDS: glipiZIDE 5 MG TAB PO SCH ×2 (09:19→17:47)
--- NOTE | 2016-12-07 10:17 | P.PN ---
Progress Note - Text The patient is an 81-year-old gentleman who presented with a left lower lobe pneumonia associated with it influenza B infection. Patient has been on antibiotics and respiratory treatments. He did have some confusion over the past couple days but this morning he is sitting up in bed and is generally alert but apparently did have some confusion with physical therapy and following commands this morning. He states overall his cough is better. He denies any unusual pain. He states he does not feel short of breath. Vital signs reveal temperature of 98 with a pulse of 71 and respirations 20. Blood pressure was 171/82 and he was 96% saturated on 2 L. Head and neck exam unremarkable. Lung and heart exam clear and regular this morning. Breath sounds were generally better than yesterday on exam. Abdomen nontender. Cranial nerves intact without focal weakness noted. No edema. Laboratory revealed a sodium 144 with a potassium of 3.7. BUN was 29 with a creatinine 0.86 and a blood sugar 145. Impressions and plans: Overall this elderly gentleman with underlying left lower lobe pneumonia and influenza B infection appears to be slowly improving from his pulmonary standpoint. Mental status and physical endurance appears to be a little bit better but still not back to baseline at this time. Discussed with yesterday over the phone. We will continue to see how patient does over the next 24-48 hours. We'll also consider extended care facility early next week pending clinical response. We'll continue with antibiotics along with steroid taper and respiratory treatments. Discussed with patient at bedside and with staff this morning. Dr. Wheeler road commissioner for me over the weekend if any problems should arise.
[2016-12-07 11:28] LABS: Glucose,Whole Blood 203 mg/dL (75-99)
[2016-12-07 16:47] LABS: Glucose,Whole Blood 205 mg/dL (75-99)
[2016-12-07 20:29] LABS: Glucose,Whole Blood 231 mg/dL (75-99)
[2016-12-07] MEDS: CITALOPRAM HYDROBROMIDE 20 MG TAB PO SCH (20:29)
[2016-12-07] MEDS: ASPIRIN 81 MG CHEW PO SCH (20:29)
[2016-12-07] MEDS: ATORVASTATIN 10 MG TAB PO SCH (20:29)
[2016-12-08 07:20] LABS: Glucose,Whole Blood 94 mg/dL (75-99)
[2016-12-08] MEDS: glipiZIDE 5 MG TAB PO SCH ×2 (09:23→16:47)
[2016-12-08] MEDS: TAMSULOSIN 0.4 MG CAP.ER.24H PO SCH (09:23)
[2016-12-08] MEDS: ENOXAPARIN 40 MG/0.4 ML SYRINGE SQ SCH (09:23)
[2016-12-08] MEDS: predniSONE 10 MG TAB PO SCH (09:23)
[2016-12-08] MEDS: ISOSORBIDE MONONITRATE ER 15 MG TAB PO SCH (09:23)
[2016-12-08] MEDS: FUROSEMIDE 20 MG TAB PO SCH ×2 (09:23→20:07)
[2016-12-08] MEDS: OSELTAMIVIR 75 MG CAP PO SCH (09:24)
[2016-12-08] MEDS: POTASSIUM CHLORIDE ER 10 MEQ TAB.ER.PRT PO SCH (09:24)
[2016-12-08] MEDS: LEVOFLOXACIN 500 MG TAB PO SCH (09:24)
[2016-12-08] MEDS: IBUPROFEN 600 MG TAB PO SCH ×2 (09:25→20:08)
[2016-12-08] MEDS: ALPRAZolam 0.25 MG TAB PO SCH ×2 (09:25→20:07)
--- NOTE | 2016-12-08 09:53 | P.PN ---
Progress Note - Text The patient is an 81-year-old gentleman who presented with a left lower lobe pneumonia also associated with an influenza B positive infection. Patient has had some intermittent confusion over the past couple of days which slowly appears to be improving. According to patient and staff he appears to be doing somewhat better with therapy. Although he still has some balance and endurance issues. Apparently he is having less cough and shortness of breath. Vital signs reveal temperature 96.9 with a pulse of 67 and respirations 19. Blood pressure was 175/81 and he is 92% saturated on nasal cannula. Patient appears overall comfortable. Lungs do reveal some scattered rhonchi posteriorly. Heart tones are regular. Abdomen nontender. No unusual edema. Today he knows who I am and where he is at. Seems to be relating overall appropriately. Blood sugar this morning is 94 although had been up into the 200 range through the night. Impressions and plans: Overall this gentleman with a left lower lobe pneumonia and influenza B infection. Did develop some confusion in the hospital likely related to a toxic encephalopathy from his left lower lobe pneumonia and influenza infection. He does seem to be improving on all counts. Discussed with patient and staff. Likely plan is to discharge to extended care rehab over the next 24-48 hours. Patient is taking fluids and we will continue him now off his IV and we'll continue him on Levaquin. Continue with her steroid taper. Dr. Wheeler on medical call for me today if any problems.
[2016-12-08 12:13] LABS: Glucose,Whole Blood 182 mg/dL (75-99)
[2016-12-08 17:23] LABS: Glucose,Whole Blood 200 mg/dL (75-99)
[2016-12-08] MEDS: CITALOPRAM HYDROBROMIDE 20 MG TAB PO SCH (20:07)
[2016-12-08] MEDS: ASPIRIN 81 MG CHEW PO SCH (20:07)
[2016-12-08] MEDS: ATORVASTATIN 10 MG TAB PO SCH (20:07)
--- NOTE | 2016-12-08 21:13 | DS ---
DATE OF ADMISSION: 12/03/2016 DATE OF DISCHARGE: Mr. Fonseca is an 81 -year-old gentleman who presented to the Emergency Room Department on December 06 with cough, dyspnea, shortness of breath, weakness, falls. He was found on workup to have a left upper lobe pneumonia and also was positive for Influenza B. Lab tests revealed a white count of 6 and hemoglobin 11.9 and platelets 148, INR slightly elevated at1.5. Troponin was 0.012. Albumin 3.6. Sodium 143, potassium 4.2, BUN 15, creatinine 1.0, GFR greater than 60, blood sugar was 63. Some question of possible atrial fibrillation on presentation and cardiology was consulted and it was felt that he was not in atrial fibrillation on his EKG. CT scan of the head and neck revealed atrophy and small vessel disease with no acute intracranial abnormalities seen. The patient was treated with IV antibiotics along with respiratory therapy, physical therapy and occupational therapy. He was seen by cardiology and also treated with antiviral medications. He did have in hospital confusion to place, time and general awareness which gradually improved with further treatment of his underlying infection. At this point, plans are anticipating possible transfer to extended care facility rehab. Medications to include: 1. Five more day course of Levaquin 500 mg daily once again for five days. 2. He is also to take Prednisone 20 mg for five days and 10 mg for five days and then discontinue. 3. He will also be on Glipizide 10 mg twice a day. 4. Tamsulosin 0.5 mg daily. 5. Potassium chloride 10 meq daily. 6. Isosorbide mononitrate extended release 15 mg daily. 7. Duoneb respiratory treatments 3 mL four times a day. 8. Ibuprofen 600 mg twice a day. 9. Colace 100 mg daily. 10. Celexa 20 mg at bedtime. 11. Lipitor 10 mg at bedtime. 12. Aspirin 81 mg daily. 13. Alprazolam 0.125 b.i.d. for anxiety. FINAL DIAGNOSIS(ES): 1. Left lower lobe pneumonia with acute shortness of breath, weakness associated with a fall at home. 2. Acute confusional state related to toxic encephalopathy with underlying infection. 3. The patient has chronic systolic congestive heart failure with an ejection fraction of 35 to 40% on an echocardiogram on this admission. 4. He has past history of coronary artery disease with previous stenting. 5. History of hypertension, hypertensive heart disease . 6. Diabetes, Type 2. 7. Hyperlipidemia. 8. Chronic lumbar osteoarthritic pain. 9. History of anxiety. 10. History of depression. 11. History of previous prostate cancer with resection. 12. History of previous surgeries that include cataract surgery of the left eye and previous cholecystectomy and hernia repair. The patient to progress with physical therapy and occupational therapy as tolerated. Diet as tolerated. Prognosis is somewhat guarded in light of the multiple medical comorbidities as stated above. MTDD
[2016-12-08 21:17] LABS: Glucose,Whole Blood 172 mg/dL (75-99)
[2016-12-08 22:51] VITALS: RESP 18
[2016-12-09 07:33] LABS: Glucose,Whole Blood 115 mg/dL (75-99)
--- NOTE | 2016-12-09 08:05 | P.PN ---
Progress Note - Text The patient is an 81-year-old gentleman who presented with a left lower lobe pneumonia and positive for influenza B infection. He has been on antibiotics and steroid taper with gradual improvement. He has also been on antiviral agents. Temperature this morning is 97.3 with a pulse of 78 and respirations 18. Blood pressure is 174/79 and he is 96% saturated on 2 L nasal cannula. Lungs do reveal some scattered rhonchi but otherwise clear. Heart tones were regular. Abdomen nontender. No unusual edema. Patient appears to be clearing from his overall confusion earlier and there are no neurological focal deficits noted. Blood sugar was 115 this morning was up to 200 earlier Impression and plan: Overall this gentleman is improving from his underlying pneumonia and his toxic encephalopathy from the pneumonia. Discussed with patient and with nursing staff at bedside this morning. Anticipating discharge to extended care facility. Please refer to discharge summary for discharge orders and medications. Of note though we have added losartan this morning 25 mg daily because of his blood pressures being elevated. We have also increased his glipizide to his previous admission 10 mg twice a day as his blood sugars have been elevated and he is now eating most of his food.
[2016-12-09] MEDS: TAMSULOSIN 0.4 MG CAP.ER.24H PO SCH (08:31)
[2016-12-09] MEDS: glipiZIDE 5 MG TAB PO SCH (08:31)
[2016-12-09] MEDS: LEVOFLOXACIN 500 MG TAB PO SCH (08:31)
[2016-12-09] MEDS: IBUPROFEN 600 MG TAB PO SCH (08:32)
[2016-12-09] MEDS: FUROSEMIDE 20 MG TAB PO SCH (08:32)
[2016-12-09] MEDS: ENOXAPARIN 40 MG/0.4 ML SYRINGE SQ SCH (08:32)
[2016-12-09] MEDS: ALPRAZolam 0.25 MG TAB PO SCH (08:32)
[2016-12-09] MEDS: POTASSIUM CHLORIDE ER 10 MEQ TAB.ER.PRT PO SCH (08:33)
[2016-12-09] MEDS: ISOSORBIDE MONONITRATE ER 15 MG TAB PO SCH (08:33)
[2016-12-09] MEDS: predniSONE 10 MG TAB PO SCH (08:33)
[2016-12-09] MEDS ORDERED: LOSARTAN 25 MG TAB PO SCH (09:00)
[2016-12-09 09:19] VITALS: BP 126/67; PULSE 76; TEMP 98.5
[2016-12-09 11:30] LABS: Glucose,Whole Blood 173 mg/dL (75-99)
== END 2016-12-09 13:27 | DRG 193 ==
LOC: EC 17:12 → 4MS4W 20:37
PROVIDERS: ADMIT Internal Medicine; ATTEND Internal Medicine
DX: J10.08 Influenza due to other identified influenza virus with other specified pneumonia (principal); G92 Toxic encephalopathy; F05 Delirium due to known physiological condition; I11.0 Hypertensive heart disease with heart failure; I50.22 Chronic systolic (congestive) heart failure; E11.649 Type 2 diabetes mellitus with hypoglycemia without coma; J12.89 Other viral pneumonia; E78.5 Hyperlipidemia, unspecified; F41.9 Anxiety disorder, unspecified; G89.29 Other chronic pain; I08.0 Rheumatic disorders of both mitral and aortic valves; I25.10 Atherosclerotic heart disease of native coronary artery without angina pectoris; I25.2 Old myocardial infarction; I25.5 Ischemic cardiomyopathy; I45.4 Nonspecific intraventricular block; I48.91 Unspecified atrial fibrillation; M10.9 Gout, unspecified; M19.90 Unspecified osteoarthritis, unspecified site; R09.02 Hypoxemia; S09.90XA Unspecified injury of head, initial encounter; W19.XXXA Unspecified fall, initial encounter; Y92.009 Unspecified place in unspecified non-institutional (private) residence as the place of occurrence of the external cause; Z79.82 Long term (current) use of aspirin; Z79.84 Long term (current) use of oral hypoglycemic drugs; Z79.899 Other long term (current) drug therapy; Z82.49 Family history of ischemic heart disease and other diseases of the circulatory system; Z85.46 Personal history of malignant neoplasm of prostate; Z86.711 Personal history of pulmonary embolism; Z87.891 Personal history of nicotine dependence; Z95.5 Presence of coronary angioplasty implant and graft
CPT/HCPCS: 36415; 70450; 71010; 71020; 72125; 80048; 80053; 81001; 82550; 82553; 83605; 83735; 83880; 84484; 85025; 85610; 85730; 87040; 87086; 87502; 93005; 93306; 94640; 96365; 96366; 96375; 99285

== ENCOUNTER 2017-01-06 16:02 | Inpatient (IN) | payer MEDICARE ==
[2017-01-06] MEDS ORDERED: SODIUM CHLORIDE 0.9% 1,000 ML IV STA (16:05)
[2017-01-06 16:53] LABS: Anisocytosis Slight; Aty Lym Flag Slight; CH 28.4; CHCM 32.8; HCT 31.6 % (39.0-53.0); HDW 3.07; HGB 10.5 gm/dL (13.0-17.5); MCH 28.9 pg (25.0-35.0); MCHC 33.3 g/dL (31.0-37.0); MCV 86.8 fL (80.0-100.0); Mean Platelet Volume 6.9; RBC 3.64 m/uL (4.30-5.90); RDW 16.4 % (11.5-15.5); WBC 6.6 k/uL (3.8-10.6); WBC (Perox) 6.77
[2017-01-06 16:55] LABS: ALT 35 U/L (21-72); AST 30 U/L (17-59); Alkaline Phosphatase 72 U/L (38-126); Anion Gap 5 mmol/L; Blood Urea Nitrogen 24 mg/dL (9-20); Calcium 8.1 mg/dL (8.4-10.2); Carbon Dioxide 29 mmol/L (22-30); Chloride 102 mmol/L (98-107); Glucose 64 mg/dL (74-99); Magnesium 1.8 mg/dL (1.6-2.3); Non-African American GFR(MDRD) >60 (>60 ml/min/1.73 sqM); Phosphorous 2.9 mg/dL (2.5-4.5); Potassium 3.9 mmol/L (3.5-5.1); Sodium 136 mmol/L (137-145); Total Bilirubin 0.5 mg/dL (0.2-1.3); Total Protein 5.7 g/dL (6.3-8.2)
[2017-01-06 16:57] LABS: INR 1.4 (<1.1); Partial Thromboplastin Time 24.6 sec (22.0-30.0); Prothrombin Time 13.5 sec (9.0-12.0)
--- NOTE | 2017-01-06 17:10 | ED ---
General Adult HPI - General Chief complaint: Weakness Stated complaint: WEAKNESS Time Seen by Provider: 01/06/17 16:05 Source: patient, family, RN notes reviewed, old records reviewed Mode of arrival: EMS Limitations: no limitations - History of Present Illness Initial comments: This is an 79-year-old male ER for evaluation. The patient was unsure evaluation of right lower extremity edema and swelling. Severe other joint pain. Been worse for 2 days. Patient also complaining of waking. Patient's significant cardiac history significant vascular history no history of DVT or PE. Patient is not on blood thinners. No trauma. No travel history. Patient does suffer from [place] hypertension and high cholesterol. - Related Data Home Medications Medication Instructions Recorded Confirmed ALPRAZolam [Xanax] 0.125 mg PO BID 07/04/16 01/06/17 Aspirin EC [Ecotrin Low Dose] 81 mg PO AC-SUPPER 07/04/16 01/06/17 Citalopram Hydrobromide [CeleXA] 20 mg PO HS 07/04/16 01/06/17 Simvastatin [Zocor] 20 mg PO HS 07/04/16 01/06/17 glipiZIDE [Glucotrol] 10 mg PO PC-BID 07/04/16 01/06/17 Furosemide [Lasix] 20 mg PO BID 12/03/16 01/06/17 Isosorbide Mononitrate ER [Imdur] 15 mg PO DAILY 01/06/17 01/06/17 Potassium Chloride ER [K-Dur 20] 20 meq PO DAILY 01/06/17 01/06/17 valACYclovir [Valtrex] 500 mg PO BID 01/06/17 01/06/17 Previous Rx's Medication Instructions Recorded Docusate [Colace] 100 mg PO DAILY PRN #0 cap 12/09/16 Ibuprofen [Motrin] 600 mg PO BID tab 12/09/16 Ipratropium-Albuterol Nebulize 3 ml INHALATION RT-Q4H PRN #30 12/09/16 [Duoneb 0.5 mg-3 mg/3 ml Soln] ampul.neb Losartan [Cozaar] 25 mg PO DAILY tab 12/09/16 Tamsulosin [Flomax] 0.4 mg PO PC-BRKFST cap.er.24h 12/09/16 Allergies Allergy/AdvReac Type Severity Reaction Status Date / Time No Known Allergies Allergy Unverified 01/06/17 17:15 Review of Systems ROS Statement: Those systems with pertinent positive or pertinent negative responses have been documented in the HPI. ROS Other: All systems not noted in ROS Statement are negative. Past Medical History Past Medical History: Cancer, Diabetes Mellitus, Hyperlipidemia, Hypertension, Myocardial Infarction ([place]), Osteoarthritis (OA), Pulmonary Embolus ([place]) Additional Past Medical History / Comment(s): prostate cancer 1996(sx only), arthritis, per 2007 past medical hx- mi in 1999, pe after back sx 1997, emphysema, gout,constipation, aaa " stated thinks it's 3.5 cm", pt is rt side dominant[place],dentures, Last Myocardial Infarction Date:: 1999 History of Any Multi-Drug Resistant Organisms: None Reported Past Surgical History: Back Surgery, Cholecystectomy, Heart Catheterization With Stent, Hernia Repair, Prostate Surgery Additional Past Surgical History / Comment(s): jesenia cataract , colonoscopy polys remove were benign, lt hand sx Past Anesthesia/Blood Transfusion Reactions: Previous Problems w/ Anesthesia Additional Past Anesthesia/Blood Transfusion Reaction / Comment(s): hard time waking after a colonoscopy Date of Last Stent Placement:: unk Past Psychological History: No Psychological Hx Reported Additional Psychological History / Comment(s): pt lives at home with his , 2 story home but pt stays on main level.has 2 steps into home. pt uses a rolling walker w/seat or cane(has both single and a quad cane), has a shower chair. currently no home care, no previous service. 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 Smoking Status: Former smoker Past Alcohol Use History: None Reported Additional Past Alcohol Use History / Comment(s): started smokning 1952, quit 1982 smoked 1 to 1.5 ppd Past Drug Use History: None Reported - Past Family History Father Family Medical History: CVA/TIA Mother Family Medical History: CVA/TIA, Hypertension Additional Family Medical History / Comment(s): pacemaker General Exam Limitations: no limitations General appearance: alert, in no apparent distress Head exam: Present: atraumatic, normocephalic, normal inspection Eye exam: Present: normal appearance, PERRL, EOMI. Absent: scleral icterus, conjunctival injection, periorbital swelling ENT exam: Present: normal exam, mucous membranes moist Neck exam: Present: normal inspection. Absent: tenderness, meningismus, lymphadenopathy Respiratory exam: Present: normal lung sounds bilaterally. Absent: respiratory distress, wheezes, rales, rhonchi, stridor Cardiovascular Exam: Present: regular rate, normal rhythm, normal heart sounds. Absent: systolic murmur, diastolic murmur, rubs, gallop, clicks GI/Abdominal exam: Present: soft, normal bowel sounds. Absent: distended, tenderness, guarding, rebound, rigid Extremities exam: Present: normal inspection, full ROM, normal capillary refill , other (Significant right lower extremity edema, calf tenderness). Absent: tenderness, pedal edema, joint swelling, calf tenderness Back exam: Present: normal inspection Neurological exam: Present: alert, oriented X3, CN II-XII intact Psychiatric exam: Present: normal affect, normal mood Skin exam: Present: warm, dry, intact, normal color. Absent: rash Course Vital Signs 01/06/17 01/06/17 16:21 16:59 Temperature 99.2 F Pulse Rate 80 Respiratory 16 16 Rate Blood Pressure 106/64 O2 Sat by Pulse 92 L Oximetry - Reevaluation(s) Reevaluation #1: 01/06/17 19:23 Spoke with patient regarding diagnosis, patient okay for admission EKG Findings - EKG Comments: EKG Findings:: EKG shows sinus rhythm with rate of 79, ID 320, QRS 140, QTC 483 Medical Decision Making - Medical Decision Making 81 male here with positive DVT right lower extremity, we'll admit for anticoagulation - Lab Data Result diagrams: 01/06/17 16:10 01/06/17 16:10 Lab Results 01/06/17 01/06/17 01/06/17 Range/Units 16:10 16:10 16:10 WBC 6.6 (3.8-10.6) k/uL RBC 3.64 L (4.30-5.90) m/uL Hgb 10.5 L (13.0-17.5) gm/dL Hct 31.6 L (39.0-53.0) % MCV 86.8 (80.0-100.0) fL MCH 28.9 (25.0-35.0) pg MCHC 33.3 (31.0-37.0) g/dL RDW 16.4 H (11.5-15.5) % Plt Count 135 L (150-450) k/uL Neutrophils % (Manual) 67.0 % Lymphocytes % (Manual) 24.0 % Monocytes % (Manual) 7.0 % Eosinophils % (Manual) 2.0 % Neutrophils # (Manual) 4.4 (1.3-7.7) k/uL Lymphocytes # (Manual) 1.6 (1.0-4.8) k/uL Monocytes # (Manual) 0.5 (0-1.0) k/uL Eosinophils # (Manual) 0.1 (0-0.7) k/uL Nucleated RBCs 0 (0-0) /100 WBC Toxic Granulation Present Anisocytosis Slight PT (9.0-12.0) sec INR (<1.1) APTT (22.0-30.0) sec Sodium 136 L (137-145) mmol/L Potassium 3.9 (3.5-5.1) mmol/L Chloride 102 (98-107) mmol/L Carbon Dioxide 29 (22-30) mmol/L Anion Gap 5 mmol/L BUN 24 H (9-20) mg/dL Creatinine 0.86 (0.66-1.25) mg/dL Est GFR (MDRD) Af Amer >60 (>60 ml/min/1.73 sqM) Est GFR (MDRD) Non-Af >60 (>60 ml/min/1.73 sqM) Glucose 64 L (74-99) mg/dL Calcium 8.1 L (8.4-10.2) mg/dL Phosphorus 2.9 (2.5-4.5) mg/dL Magnesium 1.8 (1.6-2.3) mg/dL Total Bilirubin 0.5 (0.2-1.3) mg/dL AST 30 (17-59) U/L ALT 35 (21-72) U/L Alkaline Phosphatase 72 (38-126) U/L Total Creatine Kinase 261 H (55-170) U/L CK-MB (CK-2) 1.7 (0.0-2.4) ng/mL CK-MB (CK-2) Rel Index 0.7 Troponin I 0.019 (0.000-0.034) ng/mL Total Protein 5.7 L (6.3-8.2) g/dL Albumin 2.8 L (3.5-5.0) g/dL TSH 1.950 (0.465-4.680) mIU/L 01/06/17 Range/Units 16:10 WBC (3.8-10.6) k/uL RBC (4.30-5.90) m/uL Hgb (13.0-17.5) gm/dL Hct (39.0-53.0) % MCV (80.0-100.0) fL MCH (25.0-35.0) pg MCHC (31.0-37.0) g/dL RDW (11.5-15.5) % Plt Count (150-450) k/uL Neutrophils % (Manual) % Lymphocytes % (Manual) % Monocytes % (Manual) % Eosinophils % (Manual) % Neutrophils # (Manual) (1.3-7.7) k/uL Lymphocytes # (Manual) (1.0-4.8) k/uL Monocytes # (Manual) (0-1.0) k/uL Eosinophils # (Manual) (0-0.7) k/uL Nucleated RBCs (0-0) /100 WBC Toxic Granulation Anisocytosis PT 13.5 H (9.0-12.0) sec INR 1.4 (<1.1) APTT 24.6 (22.0-30.0) sec Sodium (137-145) mmol/L Potassium (3.5-5.1) mmol/L Chloride (98-107) mmol/L Carbon Dioxide (22-30) mmol/L Anion Gap mmol/L BUN (9-20) mg/dL Creatinine (0.66-1.25) mg/dL Est GFR (MDRD) Af Amer (>60 ml/min/1.73 sqM) Est GFR (MDRD) Non-Af (>60 ml/min/1.73 sqM) Glucose (74-99) mg/dL Calcium (8.4-10.2) mg/dL Phosphorus (2.5-4.5) mg/dL Magnesium (1.6-2.3) mg/dL Total Bilirubin (0.2-1.3) mg/dL AST (17-59) U/L ALT (21-72) U/L Alkaline Phosphatase (38-126) U/L Total Creatine Kinase (55-170) U/L CK-MB (CK-2) (0.0-2.4) ng/mL CK-MB (CK-2) Rel Index Troponin I (0.000-0.034) ng/mL Total Protein (6.3-8.2) g/dL Albumin (3.5-5.0) g/dL TSH (0.465-4.680) mIU/L - Radiology Data Radiology results: report reviewed (Ultrasound right lower extremity is negative for DVT), image reviewed Disposition Clinical Impression: Right leg DVT Disposition: ADMITTED IP TO THIS [facility] Condition: Fair Referrals: Nolberto Adame MD [Primary Care Provider] - 1-2 days
[2017-01-06 17:14] LABS: Creatine Kinase MB 1.7 ng/mL (0.0-2.4); Troponin I 0.019 ng/mL (0.000-0.034)
[2017-01-06 17:31] LABS: Add Differential Manual Differential
[2017-01-06 17:33] LABS: Nucleated Red Blood Cells 0 /100 WBC (0-0); Total Cells Counted 100; Toxic Granulation Present
--- NOTE | 2017-01-06 18:41 | XR ---
EXAMINATION TYPE: XR chest 2V DATE OF EXAM: 01/06/2017 6:37 PM COMPARISON: Chest x-ray December 06, 2016. HISTORY: Weakness. TECHNIQUE: Frontal and lateral views of the chest are obtained. FINDINGS: There is no focal air space opacity, pleural effusion, or pneumothorax seen. The cardiac silhouette size is enlarged with perhaps mild central vascular congestion though this is less promine nt than prior study. The osseous structures are demineralized. Degenerative arthropathy left glenoh umeral joint is present. Multilevel spurring in lower thoracic spine is seen. IMPRESSION: Consider CHF exacerbation as there is cardiomegaly with possible mild central vascular co ngestion, clinical correlation advised. Findings are improved versus prior study.
[2017-01-06] MEDS ORDERED: HEPARIN SODIUM,PORCINE 5,000 UNIT/ML 1 ML VIAL IV ONE (19:21)
[2017-01-06] MEDS ORDERED: HEPARIN SODIUM,PORCINE 5,000 UNIT/ML 1 ML VIAL IV PRN (19:21)
--- NOTE | 2017-01-06 19:31 | US ---
EXAMINATION TYPE: US venous doppler duplex LE RT DATE OF EXAM: 01/06/2017 7:09 PM COMPARISON: NONE CLINICAL HISTORY: Pain. Redness in right leg SIDE PERFORMED: Right TECHNIQUE: The lower extremity deep venous system is examined utilizing real time linear array sonog cortze with graded compression, doppler sonography and color-flow sonography. VESSELS IMAGED: External Iliac Vein (EIV) Common Femoral Vein Deep Femoral Vein Greater Saphenous Vein * Femoral Vein Popliteal Vein Small Saphenous Vein * Proximal Calf Veins (* superficial vessels) Right Leg: ++Positive for DVT extending from the right EIV to the right proximal calf veins Hyperechoic material is expanding the venous lumen from visualized distal right external iliac vein t hrough the popliteal vein into the proximal calf veins in the right lower extremity with absent color flow. Mild to moderate subcutaneous edema is noted distally on images saved. IMPRESSION: Long segment acute DVT in the right lower extremity.
[2017-01-06] MEDS: HEPARIN SODIUM,PORCINE/D5W PMX 25,000 UNIT in DEXTROSE/WATER 1 500ML.BAG IV SCH (20:31)
[2017-01-06] MEDS ORDERED: DOCUSATE 100 MG CAP PO PRN (22:10)
[2017-01-07] MEDS: WARFARIN 7.5 MG TAB PO SCH (03:09)
[2017-01-07 07:41] LABS: Anisocytosis Slight; Basophils % (A) 1 %; CH 28.3; CHCM 31.6; Eosinophils # (A) 0.2 k/uL (0-0.7); Eosinophils % (A) 3 %; HCT 30.5 % (39.0-53.0); HDW 2.87; HGB 9.6 gm/dL (13.0-17.5); Hypochromasia Slight; Luc # (Auto) 0.21; Luc % (Auto) 4; Lymphocytes # (A) 1.6 k/uL (1.0-4.8); Lymphocytes % (A) 27 %; MCH 28.3 pg (25.0-35.0); MCHC 31.6 g/dL (31.0-37.0); MCV 89.8 fL (80.0-100.0); Monocytes # (A) 0.4 k/uL (0-1.0); Monocytes % (A) 6 %; Neutrophils # (A) 3.5 k/uL (1.3-7.7); Neutrophils % (A) 60 %; RBC 3.39 m/uL (4.30-5.90); RDW 16.7 % (11.5-15.5); WBC 5.8 k/uL (3.8-10.6); WBC (Perox) 6.11
--- NOTE | 2017-01-07 07:49 | P.HPIM ---
History of Present Illness Chief complaint: Weakness and right leg swelling and pain. History of present illness: The patient's a 81-year-old gentleman who was initially hospitalized here approximately a month ago with pneumonia. Patient improved and was transferred to [facility]. Apparently there he progressed with therapy and was able to be discharged to home. Patient does state though he was having increasing swelling of the right lower extremity which continued to worsen. At home apparently this bothered him and he became weak and he was unable to ambulate so patient was brought back to the emergency room. Patient has also a zoster type rash of the right lower torso/trunk and has been treated with acyclovir. Past medical history: Patient was hospitalized for pneumonia and secondary medical debility requiring subacute rehab at [facility]. History of congestive heart failure with ejection fraction of 35-40% on echocardiogram earlier this year. History of coronary artery disease and previous stenting Hypertension and hypertensive heart disease Type 2 diabetes Hyperlipidemia Chronic lumbar arthritic pain. Anxiety and depression History of previous prostate cancer with resection History of other surgeries that include cholecystectomy and hernia repair. Left cataract eye surgery and his prostate resection. He is also had lumbar surgery in the past. Review of systems: Positive as mentioned in the history of present illness. He has had minimal cough and no definite fevers although occasional chills. No visual disturbances or headaches. No nausea or vomiting. He denies any urinary or bowel symptoms. No rectal bleeding. No abdominal pain. Positive for the right leg swelling. Medications: Home medications include Valtrex 500 mg twice a day now for about 4 days. The patient was on respiratory treatments 4 times a day with DuoNeb. Imdur 15 mg daily Aspirin 81 mg daily Glucotrol 10 mg twice a day Zocor 20 mg at at bedtime for cholesterol Xanax 0.125 twice a day for anxiety Tamsulosin 0.4 mg daily for prostate Losartan 25 mg daily Ibuprofen 600 mg twice a day Lasix 20 mg twice a day Colace 100 mg daily for constipation Celexa 20 mg at at bedtime for depression maintenance. Cathleen history: Positive for coronary artery disease Social history: Patient is a former smoker. Negative for alcohol usage. Patient does live with his elderly at home locally. Physical examination: Patient is lying in bed alert and oriented. In no acute distress. Temperature is 97.6 with a pulse of 70 and regular and respirations 18 and nonlabored. Blood pressure is 106/58 and he is 96% saturated on 2 L nasal cannula. Head and neck exam unremarkable. Extraocular movements are intact. Neck supple without adenopathy or thyromegaly. No definite bruits. Lungs are clear to auscultation. Heart tones are slightly distant but regular without murmurs or rubs. Abdomen is obese. There is a rash around the right side of the abdomen and back in a dermatome distribution that is somewhat erythematous. Rectal and genital exam deferred. Right leg is diffusely swollen compared to the left. 3-4+ grade edema. Homans sign is negative. Skin is tense. Neurologically patient is alert and oriented. Cranial nerves intact. No focal weakness. Laboratory: White count is 6.6 with a hemoglobin 10.5 and a platelet count of 135. Initial INR was 1.4. PTT was 24.6 but is up to 38.3 on heparin. Sodium was 136 with a potassium of 3.9. BUN is 24 with a creatinine of 0.86 given him a GFR greater than 60. Glucose was 64. CPK was 261. Troponin though is less than 0.019. Albumin is low at 2.8 with a total protein of 5.7. TSH was normal at 1.95. Chest x-ray showed possible mild central vascular congestion. But much improved from previous studies a month ago. EKG: Shows sinus rhythm with first-degree AV block. Possible old lateral and inferior infarcts. No acute ischemic changes. Doppler study showed long segment DVT of the right lower extremity extending from the external iliac down to the right proximal calf veins. Impressions: 1. Acute DVT of the right lower extremity causing edema and immobility. 2. Acute zoster/shingles of the right torso. Present now for about 5 days under treatment. 3. Overall debilitated state with mild hypoalbuminemia. 4. Past medical history as outlined above. Plans: Patient has been started on heparin and will also add Coumadin. Consultation has been placed for vascular surgery to evaluate. Patient to continue course of acyclovir here for his shingles for a seven-day course. Continue with local wound care. We'll need to resume physical therapy later to determine during course of heparin whether patient will be able to return to home or need again extended care facility placement. This was discussed with patient at bedside. Past Medical History Past Medical History: Cancer, Diabetes Mellitus, Hyperlipidemia, Hypertension, Myocardial Infarction ([place]), Osteoarthritis (OA), Pulmonary Embolus (PE) Additional Past Medical History / Comment(s): prostate cancer 1996(sx only), arthritis, per 2008 past medical hx- mi in 1999, pe after back sx 1997, emphysema, gout,constipation, aaa " stated thinks it's 3.5 cm", pt is rt side dominant.[place],dentures, Last Myocardial Infarction Date:: 1999 History of Any Multi-Drug Resistant Organisms: None Reported Past Surgical History: Back Surgery, Cholecystectomy, Heart Catheterization With Stent, Hernia Repair, Prostate Surgery Additional Past Surgical History / Comment(s): jesenia cataract , colonoscopy polys remove were benign, lt hand sx Past Anesthesia/Blood Transfusion Reactions: Previous Problems w/ Anesthesia Additional Past Anesthesia/Blood Transfusion Reaction / Comment(s): hard time waking after a colonoscopy Date of Last Stent Placement:: unk Past Psychological History: No Psychological Hx Reported Additional Psychological History / Comment(s): pt lives at home with his , 2 story home but pt stays on main level.has 2 steps into home. pt uses a rolling walker w/seat or cane(has both single and a quad cane), has a shower chair. currently no home care, no previous service. 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 Smoking Status: Former smoker Past Alcohol Use History: None Reported Additional Past Alcohol Use History / Comment(s): started smokning 1952, quit 1982 smoked 1 to 1.5 ppd Past Drug Use History: None Reported - Past Family History Father Family Medical History: CVA/TIA Mother Family Medical History: CVA/TIA, Hypertension Additional Family Medical History / Comment(s): pacemaker Medications and Allergies Home Medications Medication Instructions Recorded Confirmed Type ALPRAZolam [Xanax] 0.125 mg PO BID 07/04/16 01/06/17 History Aspirin EC [Ecotrin Low Dose] 81 mg PO AC-SUPPER 07/04/16 01/06/17 History Citalopram Hydrobromide [CeleXA] 20 mg PO HS 07/04/16 01/06/17 History Simvastatin [Zocor] 20 mg PO HS 07/04/16 01/06/17 History glipiZIDE [Glucotrol] 10 mg PO PC-BID 07/04/16 01/06/17 History Furosemide [Lasix] 20 mg PO BID 12/03/16 01/06/17 History Isosorbide Mononitrate ER [Imdur] 15 mg PO DAILY 01/06/17 01/06/17 History Potassium Chloride ER [K-Dur 20] 20 meq PO DAILY 01/06/17 01/06/17 History valACYclovir [Valtrex] 500 mg PO BID 01/06/17 01/06/17 History Allergies Allergy/AdvReac Type Severity Reaction Status Date / Time No Known Allergies Allergy Unverified 01/06/17 17:15 Physical Exam Vitals: Vital Signs Temp Pulse Pulse Resp BP BP Pulse Ox 01/07/17 05:05 70 18 106/58 96 01/07/17 02:45 18 01/06/17 20:09 97.6 F 79 18 116/66 94 L 01/06/17 20:05 96 Intake and Output 01/06/17 01/07/17 01/07/17 22:59 06:59 14:59 Intake Total 582.333 Balance 582.333 Intake: IV 440 Invasive Line 1 350 Sodium Chloride 0.9% 1, 90 000 ml @ 999 mls/hr IV . Q1H1M STA Rx#:[id number] Intake, IV Titration 142.333 Amount Heparin Sodium,Porcine/ 142.333 D5w Pmx 25,000 unit In Dextrose/Water 1 500ml. bag @ 10.969 UNITS/KG/HR 20 mls/hr IV .Q24H KENIA Rx #:[id number] Results CBC & Chem 7: 01/06/17 16:10 01/06/17 16:10 Labs: Abnormal Lab Results - Last 24 Hours (Table) 01/07/17 Range/Units 01:25 APTT 38.3 H (22.0-30.0) sec Thrombosis Risk Factor Assmnt - Choose All That Apply Any of the Below Risk Factors Present?: Yes Each Factor Represents 1 point: Serious lung disease incl. pneumonia (< 1month) , Varicose veins Each Risk Factor Represents 3 Points: Age 75 years or older, History of DVT/PE Other congenital or acquired thrombophilia - If yes, enter type in comment: No Thrombosis Risk Factor Assessment Total Risk Factor Score: 8 Thrombosis Risk Factor Assessment Level: High Risk
[2017-01-07 07:52] LABS: INR 1.4 (<1.1); Partial Thromboplastin Time 83.5 sec (22.0-30.0); Prothrombin Time 14.1 sec (9.0-12.0)
[2017-01-07] MEDS: valACYclovir 500 MG TAB PO SCH ×2 (09:12→23:31)
[2017-01-07] MEDS: ISOSORBIDE MONONITRATE ER 15 MG TAB PO SCH (09:12)
[2017-01-07] MEDS: FUROSEMIDE 20 MG TAB PO SCH ×2 (09:13→23:32)
[2017-01-07] MEDS: POTASSIUM CHLORIDE ER 20 MEQ TAB.ER PO SCH (09:13)
[2017-01-07] MEDS: LOSARTAN 25 MG TAB PO SCH (09:13)
[2017-01-07] MEDS: TAMSULOSIN 0.4 MG CAP.ER.24H PO SCH (09:13)
[2017-01-07] MEDS: glipiZIDE 10 MG TAB PO SCH ×2 (09:13→17:55)
[2017-01-07] MEDS: ALPRAZolam 0.25 MG TAB PO SCH ×2 (09:26→23:32)
[2017-01-07 10:25] LABS: Appearance,Urine Clear (Clear); Bilirubin,Urine Negative (Negative); Glucose,Urine (UA) Negative (Negative); Ketones,Urine Negative (Negative); Leukocyte Esterase,Urine Trace (Negative); Mucus,Urine Rare /hpf; Nitrite,Urine Negative (Negative); Particle Count 2141; Protein,Urine Negative (Negative); Specific Gravity,Urine 1.015 (1.001-1.035); Squamous Epithelial Cell,Urine <1 /hpf (0-4); UA Billing (MACRO vs. MICRO) MICRO; Urobilinogen,Urine <2.0 mg/dL (<2.0); WBC,Urine 1 /hpf (0-5)
--- NOTE | 2017-01-07 13:44 | P.GSCN ---
History of Present Illness History of present illness: 81 white male, patient developed swelling of the right lower extremity for that he came to the emergency room and had a ultrasound which showed DVT of the right lower extremity involving the external iliac and and popliteal no history of shortness of breath Medical history history of congestive heart failure, ejection fraction is is 3540, history of hypertension, history of diabetes, history of prostate cancer in the past, Social history former smoker Neck examination neck is supple no bruit appreciated chest is clear auscultation first and second sound is normal Abdomen soft nontender vascular examination femorals are palpable Eschen is swelling of the right lower extremity with swelling of the right thigh and right lower extremity no vascular compromise noted Impression is DVT of the right extremity plan is patient is on heparin patient on Coumadin we'll follow with you Past Medical History Past Medical History: Cancer, Diabetes Mellitus, Hyperlipidemia, Hypertension, Myocardial Infarction ([place]), Osteoarthritis (OA), Pulmonary Embolus ([place]) Additional Past Medical History / Comment(s): prostate cancer 1996(sx only), arthritis, per 2007 past medical hx- mi in 1999, pe after back sx 1997, emphysema, gout,constipation, aaa " stated thinks it's 3.5 cm", pt is rt side dominant.[place],dentures, Last Myocardial Infarction Date:: 1999 History of Any Multi-Drug Resistant Organisms: None Reported Past Surgical History: Back Surgery, Cholecystectomy, Heart Catheterization With Stent, Hernia Repair, Prostate Surgery Additional Past Surgical History / Comment(s): jesenia cataract , colonoscopy polys remove were benign, lt hand sx Past Anesthesia/Blood Transfusion Reactions: Previous Problems w/ Anesthesia Additional Past Anesthesia/Blood Transfusion Reaction / Comm: hard time waking after a colonoscopy Date of Last Stent Placement:: unk Past Psychological History: No Psychological Hx Reported Additional Psychological History / Comment(s): pt lives at home with his , 2 story home but pt stays on main level.has 2 steps into home. pt uses a rolling walker w/seat or cane(has both single and a quad cane), has a shower chair. currently no home care, no previous service. 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 Smoking Status: Former smoker Past Alcohol Use History: None Reported Additional Past Alcohol Use History / Comment(s): started smokning 1952, quit 1982 smoked 1 to 1.5 ppd Past Drug Use History: None Reported - Past Family History Father Family Medical History: CVA/TIA Mother Family Medical History: CVA/TIA, Hypertension Additional Family Medical History / Comment(s): pacemaker Medications and Allergies Home Medications Medication Instructions Recorded Confirmed Type ALPRAZolam [Xanax] 0.125 mg PO BID 07/04/16 01/06/17 History Aspirin EC [Ecotrin Low Dose] 81 mg PO AC-SUPPER 07/04/16 01/06/17 History Citalopram Hydrobromide [CeleXA] 20 mg PO HS 07/04/16 01/06/17 History Simvastatin [Zocor] 20 mg PO HS 07/04/16 01/06/17 History glipiZIDE [Glucotrol] 10 mg PO PC-BID 07/04/16 01/06/17 History Furosemide [Lasix] 20 mg PO BID 12/03/16 01/06/17 History Isosorbide Mononitrate ER [Imdur] 15 mg PO DAILY 01/06/17 01/06/17 History Potassium Chloride ER [K-Dur 20] 20 meq PO DAILY 01/06/17 01/06/17 History valACYclovir [Valtrex] 500 mg PO BID 01/06/17 01/06/17 History Allergies Allergy/AdvReac Type Severity Reaction Status Date / Time No Known Allergies Allergy Unverified 01/06/17 17:15 Surgical - Exam Vital Signs Temp Pulse Resp BP Pulse Ox 99.2 F 80 16 106/64 92 L 01/06/17 16:21 01/06/17 16:21 01/06/17 16:21 01/06/17 16:21 01/06/17 16:21 Results - Labs 01/07/17 07:12 01/06/17 16:10 Abnormal Lab Results - Last 24 Hours (Table) 01/07/17 01/07/17 01/07/17 Range/Units 01:25 07:12 07:12 RBC 3.39 L (4.30-5.90) m/uL Hgb 9.6 L (13.0-17.5) gm/dL Hct 30.5 L (39.0-53.0) % RDW 16.7 H (11.5-15.5) % Plt Count 126 L (150-450) k/uL PT 14.1 H (9.0-12.0) sec APTT 38.3 H 83.5 H (22.0-30.0) sec
[2017-01-07] MEDS: HEPARIN SODIUM,PORCINE/D5W PMX 25,000 UNIT in DEXTROSE/WATER 1 500ML.BAG IV SCH (16:15)
[2017-01-07] MEDS: ASPIRIN 81 MG CHEW PO SCH (17:55)
[2017-01-07] MEDS ORDERED: WARFARIN 10 MG TAB PO ONE (18:00)
[2017-01-07] MEDS: ATORVASTATIN 10 MG TAB PO SCH (23:31)
[2017-01-07] MEDS: CITALOPRAM HYDROBROMIDE 20 MG TAB PO SCH (23:32)
[2017-01-08 06:53] LABS: Glucose,Whole Blood 152 mg/dL (75-99)
--- NOTE | 2017-01-08 07:45 | P.PN ---
Progress Note - Text The patient is an 81-year-old gentleman who is admitted with a right lower extremity DVT with swelling. Patient had been recovering from a bout of pneumonia and medical debility at a local rehab. Patient has been on heparin and initiated on oral Coumadin and seen by vascular surgery. This morning he is found somewhat confused. He does know who I am but thinks he is at home. He is overall pleasant. Denies any pain or shortness of breath or chest pain. No nausea or vomiting. Vital signs reveal temperature of 96.5 with a pulse of 89 and respirations 18. Blood pressure is 109/67 and he is 93% saturated on 2 L. Head and neck exam unremarkable. Lungs and heart clear and regular. Abdomen is nontender. He still has grade 3 edema on the right compared to 0-1 on the left. No new focal neurological deficits. Labs reveal a PTT of 47.1. Blood sugar 152. INR is pending. Impressions and plans: Discussed with nursing staff this morning. Await results of his daily INR for Coumadin dosing. Further recommendations pending. Vascular surgical note regarded.
[2017-01-08] MEDS: LOSARTAN 25 MG TAB PO SCH (08:24)
[2017-01-08] MEDS: POTASSIUM CHLORIDE ER 20 MEQ TAB.ER PO SCH (08:24)
[2017-01-08] MEDS: ALPRAZolam 0.25 MG TAB PO SCH ×2 (08:24→20:05)
[2017-01-08] MEDS: FUROSEMIDE 20 MG TAB PO SCH ×2 (08:24→20:06)
[2017-01-08] MEDS: ISOSORBIDE MONONITRATE ER 15 MG TAB PO SCH (08:24)
[2017-01-08] MEDS: valACYclovir 500 MG TAB PO SCH ×2 (08:24→20:05)
[2017-01-08] MEDS: TAMSULOSIN 0.4 MG CAP.ER.24H PO SCH (08:24)
[2017-01-08] MEDS: glipiZIDE 10 MG TAB PO SCH ×2 (08:25→17:47)
[2017-01-08 09:44] LABS: Anisocytosis Slight; Basophils % (A) 1 %; CH 28.3; CHCM 32.8; Eosinophils # (A) 0.1 k/uL (0-0.7); Eosinophils % (A) 2 %; HCT 31.1 % (39.0-53.0); HDW 3.09; HGB 10.4 gm/dL (13.0-17.5); Luc # (Auto) 0.16; Luc % (Auto) 3; Lymphocytes # (A) 1.5 k/uL (1.0-4.8); Lymphocytes % (A) 25 %; MCH 28.9 pg (25.0-35.0); MCHC 33.4 g/dL (31.0-37.0); MCV 86.6 fL (80.0-100.0); Mean Platelet Volume 7.2; Monocytes # (A) 0.3 k/uL (0-1.0); Monocytes % (A) 5 %; Neutrophils % (A) 65 %; RBC 3.59 m/uL (4.30-5.90); RDW 16.5 % (11.5-15.5); WBC 6.2 k/uL (3.8-10.6); WBC (Perox) 6.22
[2017-01-08 10:15] LABS: INR 2.1 (<1.1); Partial Thromboplastin Time 43.4 sec (22.0-30.0); Prothrombin Time 19.9 sec (9.0-12.0)
[2017-01-08 11:37] LABS: Glucose,Whole Blood 151 mg/dL (75-99)
[2017-01-08] MEDS: HEPARIN SODIUM,PORCINE/D5W PMX 25,000 UNIT in DEXTROSE/WATER 1 500ML.BAG IV SCH (14:25)
[2017-01-08 17:00] LABS: Glucose,Whole Blood 122 mg/dL (75-99)
[2017-01-08] MEDS: ASPIRIN 81 MG CHEW PO SCH (17:47)
[2017-01-08] MEDS: CITALOPRAM HYDROBROMIDE 20 MG TAB PO SCH (20:05)
[2017-01-08] MEDS: ATORVASTATIN 10 MG TAB PO SCH (20:06)
[2017-01-08 21:09] LABS: Glucose,Whole Blood 98 mg/dL (75-99)
[2017-01-08] MEDS: WARFARIN 7.5 MG TAB PO SCH (23:27)
[2017-01-08] MEDS ORDERED: FUROSEMIDE 10 MG/ML 4 ML VIAL IV STA (23:44)
[2017-01-08] MEDS ORDERED: IPRATROPIUM-ALBUTEROL 3 ML NEB INHALATION STA (23:44)
[2017-01-08 23:48] LABS: Glucose,Whole Blood 112 mg/dL (75-99)
[2017-01-09 07:25] LABS: Glucose,Whole Blood 122 mg/dL (75-99)
[2017-01-09] MEDS: IPRATROPIUM-ALBUTEROL 3 ML NEB INHALATION SCH ×4 (07:25→19:16)
--- NOTE | 2017-01-09 07:49 | P.PN ---
Progress Note - Text The patient is an 81-year-old gentleman who was admitted on the with right lower extremity DVT and leg swelling. The patient had been hospitalized and in extended care rehab for pneumonia for several weeks prior. Yesterday apparently he was a little confused. He also had some chest congestion through the night. Patient was given 1 dose of Lasix along with respiratory treatment. This morning he appears to be resting comfortably. He is arousable. Denies any pain or shortness of breath at this time. Last recorded vital signs reveal a pulse of 74 with a percent saturation of 95 and 2 L this morning. Earlier blood pressure was 139/79 and his temperature was 97.6. Head and neck exam unremarkable. Lungs clear to auscultation Heart tones regular. Abdomen nontender. The right leg appears to be somewhat less swollen although still 2-3+ grade edema on the right compared to 1+ on the left. Other than his fatigue there are no focal neurological deficits. Blood sugar is 122. This morning's chest x-ray is pending. Impression and plans: He is on heparin. Last INR yesterday was 2.1. Awaiting this morning's INR for further Coumadin. He has been evaluated by physical therapy and initially appears to be a once again extended care facility patient. Also awaiting report of chest x-ray from this morning. Further treatment pending results.
[2017-01-09 08:03] LABS: Anisocytosis Slight; Basophils # (A) 0.1 k/uL (0-0.2); Basophils % (A) 1 %; CH 28.1; CHCM 31.7; Eosinophils # (A) 0.2 k/uL (0-0.7); Eosinophils % (A) 3 %; HCT 31.2 % (39.0-53.0); HDW 2.89; Hypochromasia Slight; Luc # (Auto) 0.23; Luc % (Auto) 3; Lymphocytes % (A) 28 %; MCH 28.4 pg (25.0-35.0); MCHC 31.9 g/dL (31.0-37.0); Mean Platelet Volume 6.7; Monocytes # (A) 0.5 k/uL (0-1.0); Monocytes % (A) 8 %; Neutrophils % (A) 57 %; RDW 16.8 % (11.5-15.5); WBC (Perox) 7.38
[2017-01-09 08:10] LABS: Partial Thromboplastin Time 55.9 sec (22.0-30.0); Prothrombin Time 39.3 sec (9.0-12.0)
[2017-01-09] MEDS: FUROSEMIDE 20 MG TAB PO SCH ×2 (08:52→20:50)
[2017-01-09] MEDS: TAMSULOSIN 0.4 MG CAP.ER.24H PO SCH (08:52)
[2017-01-09] MEDS: POTASSIUM CHLORIDE ER 20 MEQ TAB.ER PO SCH (08:52)
[2017-01-09] MEDS: glipiZIDE 10 MG TAB PO SCH ×2 (08:52→17:08)
[2017-01-09] MEDS: valACYclovir 500 MG TAB PO SCH ×2 (08:52→20:50)
[2017-01-09] MEDS: LOSARTAN 25 MG TAB PO SCH (08:53)
[2017-01-09] MEDS: ISOSORBIDE MONONITRATE ER 15 MG TAB PO SCH (08:53)
[2017-01-09] MEDS: ALPRAZolam 0.25 MG TAB PO SCH ×2 (09:10→20:49)
[2017-01-09 11:12] LABS: Glucose,Whole Blood 210 mg/dL (75-99)
--- NOTE | 2017-01-09 13:57 | XR ---
EXAMINATION TYPE: XR chest 2V DATE OF EXAM: 01/09/2017 1:28 PM COMPARISON: 01/06/2017 TECHNIQUE: PA and lateral views submitted. HISTORY: Weakness FINDINGS: The lungs are clear and there is no pneumothorax, pleural effusion, or focal pneumonia. Hypertrophi c and degenerative change of the spine. Ectasia of the aorta. Arthropathy of the AC joints. IMPRESSION: 1. No acute process.
[2017-01-09 17:05] LABS: Glucose,Whole Blood 119 mg/dL (75-99)
[2017-01-09] MEDS: ASPIRIN 81 MG CHEW PO SCH (17:08)
[2017-01-09] MEDS: ATORVASTATIN 10 MG TAB PO SCH (20:50)
[2017-01-09] MEDS: CITALOPRAM HYDROBROMIDE 20 MG TAB PO SCH (20:50)
[2017-01-09 21:13] LABS: Glucose,Whole Blood 114 mg/dL (75-99)
[2017-01-09 22:07] VITALS: TEMP 97.5
[2017-01-10] MEDS: HEPARIN SODIUM,PORCINE/D5W PMX 25,000 UNIT in DEXTROSE/WATER 1 500ML.BAG IV SCH ×2 (05:55→15:54)
[2017-01-10 07:21] LABS: Glucose,Whole Blood 96 mg/dL (75-99)
[2017-01-10 07:34] LABS: Anisocytosis Slight; Basophils % (A) 0 %; CH 28.7; CHCM 32.9; Eosinophils # (A) 0.2 k/uL (0-0.7); Eosinophils % (A) 3 %; HCT 29.8 % (39.0-53.0); HDW 3.03; HGB 9.9 gm/dL (13.0-17.5); Luc # (Auto) 0.14; Luc % (Auto) 2; Lymphocytes # (A) 1.3 k/uL (1.0-4.8); Lymphocytes % (A) 19 %; MCH 29.2 pg (25.0-35.0); MCHC 33.4 g/dL (31.0-37.0); MCV 87.5 fL (80.0-100.0); Mean Platelet Volume 6.4; Monocytes # (A) 0.4 k/uL (0-1.0); Monocytes % (A) 7 %; Neutrophils # (A) 4.5 k/uL (1.3-7.7); Neutrophils % (A) 68 %; RDW 16.9 % (11.5-15.5); WBC 6.6 k/uL (3.8-10.6); WBC (Perox) 6.99
[2017-01-10 07:37] VITALS: BP 135/74; RESP 19
[2017-01-10] MEDS: FUROSEMIDE 20 MG TAB PO SCH (07:44)
[2017-01-10] MEDS: POTASSIUM CHLORIDE ER 20 MEQ TAB.ER PO SCH (07:45)
[2017-01-10] MEDS: LOSARTAN 25 MG TAB PO SCH (07:45)
[2017-01-10] MEDS: glipiZIDE 10 MG TAB PO SCH (07:45)
[2017-01-10] MEDS: ISOSORBIDE MONONITRATE ER 15 MG TAB PO SCH (07:45)
[2017-01-10] MEDS: TAMSULOSIN 0.4 MG CAP.ER.24H PO SCH (07:45)
[2017-01-10 07:46] LABS: INR 4.9 (<1.1); Partial Thromboplastin Time 60.4 sec (22.0-30.0); Prothrombin Time 49.2 sec (9.0-12.0)
--- NOTE | 2017-01-10 07:48 | P.DS ---
Providers Date of admission: 01/06/17 19:55 The patient is an 81-year-old gentleman who presented 4 days previously with swelling and difficulty ambulating of the right lower extremity. He was found to have a deep vein thrombosis of the right lower extremity and placed on heparin and Coumadin therapy. He was seen by vascular surgery. Over the course of treatment there has been improvement and decrease swelling of the right leg. Other results reveal a chest x-ray showing no acute process. Laboratory values reveal a white count of 7 with a hemoglobin of 10 and a platelet count 150. Blood sugars have run in the mid to lower 100 range. Sodium is 136 with potassium 3.9. BUN of 24 with a creatinine 0.86 given him a GFR greater than 60. Albumin was slightly low at 2.8 with a total protein of 5.7. TSH was 1.9. Urinalysis was unremarkable. EKG revealed sinus rhythm with first degree AV block. 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 Patient also has been evaluated by physical therapy and recommendations are for return to extended care rehab prior to return to home. Medications: 1. Coumadin daily pending results of INR. Patient also to have INR performed Mondays and at the extended care rehab. 2. Alprazolam 0.125 twice a day 3. Aspirin 81 mg with supper 4. Lipitor 10 mg at at bedtime 5. Citalopram 20 mg at at bedtime 6. Colace 100 mg daily, hold if loose stool. 7. Furosemide 20 mg twice a day 8. DuoNeb respiratory treatments twice a day and when necessary shortness of breath. 9. Isorbid mononitrate 15 mg daily 10. Losartan 25 mg daily. 11. Potassium chloride 20 mEq daily 12. Tamsulosin 0.4 mg daily. 13. Glucotrol 10 mg twice a day. Discharge diagnoses: 1. Acute DVT of the right lower extremity with swelling and immobility involving the external iliac vein down to the popliteal veins. 2. Recent right lower lobe pneumonia requiring hospitalization and immobility, cleared on chest x-ray 3. Chronic congestive heart failure with systolic dysfunction and ejection fraction of 35-40%. 4. Coronary artery disease with previous stenting 5. Hypertension and hypertensive heart disease 6. Type 2 diabetes with hypercholesterolemia 7. Chronic lumbar osteoarthritis with previous surgeries 8. History of depression 9. History of prostate cancer with resection 10. Previous surgeries including cholecystectomy, hernia repair previous prostate resection and lumbar surgery along with left cataract surgery. 11. Frail state with mild protein malnutrition and low albumin of 2.8. Once again plans and arrangements being made for extended care facility Rehab. Further Coumadin dosage pending this morning's INR. Attending physician: Nolberto Adame Primary care physician: Nolberto Adame Patient Condition at Discharge: Fair Plan - Discharge Summary Discharge Medication List ALPRAZolam [Xanax] 0.125 mg PO BID 07/04/16 [History] Aspirin EC [Ecotrin Low Dose] 81 mg PO AC-SUPPER 07/04/16 [History] Citalopram Hydrobromide [CeleXA] 20 mg PO HS 07/04/16 [History] Simvastatin [Zocor] 20 mg PO HS 07/04/16 [History] glipiZIDE [Glucotrol] 10 mg PO PC-BID 07/04/16 [History] Furosemide [Lasix] 20 mg PO BID 12/03/16 [History] Docusate [Colace] 100 mg PO DAILY PRN #0 cap 12/09/16 [Rx] Ibuprofen [Motrin] 600 mg PO BID tab 12/09/16 [Rx] Ipratropium-Albuterol Nebulize [Duoneb 0.5 mg-3 mg/3 ml Soln] 3 ml INHALATION RT -Q4H PRN #30 ampul.neb 12/09/16 [Rx] Losartan [Cozaar] 25 mg PO DAILY tab 12/09/16 [Rx] Tamsulosin [Flomax] 0.4 mg PO [id number]-[id number] cap.er.24h 12/09/16 [Rx] Isosorbide Mononitrate ER [Imdur] 15 mg PO DAILY 01/06/17 [History] Potassium Chloride ER [K-Dur 20] 20 meq PO DAILY 01/06/17 [History] valACYclovir [Valtrex] 500 mg PO BID 01/06/17 [History] Follow up Appointment(s)/Referral(s): Nolberto Adame MD [Primary Care Provider] - 1-2 days Activity/Diet/Wound Care/Special Instructions: [facility] [phone]
[2017-01-10] MEDS: ALPRAZolam 0.25 MG TAB PO SCH (07:52)
[2017-01-10] MEDS: IPRATROPIUM-ALBUTEROL 3 ML NEB INHALATION SCH ×3 (08:21→15:03)
[2017-01-10 11:40] LABS: Glucose,Whole Blood 164 mg/dL (75-99)
[2017-01-10 16:23] VITALS: PULSE 79
== END 2017-01-10 17:35 | DRG 300 ==
LOC: EC 16:02 → 5MS5E 19:55
PROVIDERS: ADMIT Internal Medicine; ATTEND Internal Medicine
DX: I82.421 Acute embolism and thrombosis of right iliac vein (principal); I50.22 Chronic systolic (congestive) heart failure; E88.09 Other disorders of plasma-protein metabolism, not elsewhere classified; I11.0 Hypertensive heart disease with heart failure; J43.9 Emphysema, unspecified; B02.9 Zoster without complications; E44.1 Mild protein-calorie malnutrition; I25.10 Atherosclerotic heart disease of native coronary artery without angina pectoris; E11.69 Type 2 diabetes mellitus with other specified complication; I71.4 Abdominal aortic aneurysm, without rupture; I44.0 Atrioventricular block, first degree; E78.00 Pure hypercholesterolemia, unspecified; E78.5 Hyperlipidemia, unspecified; M19.90 Unspecified osteoarthritis, unspecified site; G89.29 Other chronic pain; M47.816 Spondylosis without myelopathy or radiculopathy, lumbar region; H91.90 Unspecified hearing loss, unspecified ear; K59.00 Constipation, unspecified; F32.9 Major depressive disorder, single episode, unspecified; F41.9 Anxiety disorder, unspecified; M10.9 Gout, unspecified; I25.2 Old myocardial infarction; Z79.899 Other long term (current) drug therapy; Z82.49 Family history of ischemic heart disease and other diseases of the circulatory system; Z87.891 Personal history of nicotine dependence; Z86.711 Personal history of pulmonary embolism; Z85.46 Personal history of malignant neoplasm of prostate; Z95.5 Presence of coronary angioplasty implant and graft; Z79.84 Long term (current) use of oral hypoglycemic drugs; Z98.42 Cataract extraction status, left eye; Z98.41 Cataract extraction status, right eye; Z82.3 Family history of stroke; Z90.49 Acquired absence of other specified parts of digestive tract; Z86.010 Personal history of colon polyps; Z87.01 Personal history of pneumonia (recurrent); Z90.79 Acquired absence of other genital organ(s); Z97.2 Presence of dental prosthetic device (complete) (partial); Z79.82 Long term (current) use of aspirin; Z68.26 Body mass index [BMI] 26.0-26.9, adult
CPT/HCPCS: 36415; 71020; 80053; 81001; 82550; 82553; 83735; 84100; 84443; 84484; 85025; 85610; 85730; 87086; 93005; 94640; 94760; 96361; 96374; 99285